=== PATIENT | male | born 1980 | race Caucasian/White ===

== ENCOUNTER 2019-10-06 12:18 | Outpatient (CLI) | payer MEDICAID, SELFPAY ==
--- NOTE | 2019-10-06 12:30 | XRR_ITS ---
PROCEDURE INFORMATION: Exam: XR Right Shoulder Exam date and time: 10/06/2019 12:41 PM Age: 39 years old Clinical indication: Pain; Shoulder; Right; Additional info: Pain in R shoulder TECHNIQUE: Imaging protocol: XR Right shoulder. Views: 2 or more views. COMPARISON: No relevant prior studies available. FINDINGS: Bones/joints: Degenerative change, involving the acromioclavicular joint. No acute bony injury or malalignment. Soft tissues: Unremarkable soft tissues. XR/XR shoulder RT min 2V* [id number] IMPRESSION: Degenerative change, involving the acromioclavicular joint.
== END 2019-10-06 12:19 | disposition home or self-care (01) ==
LOC: RAD 12:22
PROVIDERS: Family Provider Physician Assistant Medical; Visit Provider Anesthesiology Pain Medicine
DX: M25.511 Pain in right shoulder (principal)
CPT/HCPCS: 73030

== ENCOUNTER → 2020-03-28 11:19 | Outpatient (BNVA) | payer MEDICAID, SELFPAY | PROVIDERS: Family Provider Physician Assistant Medical; Visit Provider Specialist | DX: R20.2 Paresthesia of skin (principal); R20.0 Anesthesia of skin; G56.01 Carpal tunnel syndrome, right upper limb | CPT/HCPCS: 95886; 95910; G0463 ==

== ENCOUNTER → 2020-05-02 14:35 | Outpatient (BNVA) | payer MEDICAID, SELFPAY | PROVIDERS: Family Provider Physician Assistant Medical; Visit Provider Specialist | DX: G56.01 Carpal tunnel syndrome, right upper limb (principal) | CPT/HCPCS: 73110 ==

== ENCOUNTER → 2020-05-18 10:03 | Outpatient (BNVA) | payer MEDICAID, SELFPAY | PROVIDERS: Family Provider Physician Assistant Medical; PCP Family Medicine; Referring Provider Specialist; Visit Provider Anesthesiology Pain Medicine | DX: M50.90 Cervical disc disorder, unspecified, unspecified cervical region (principal); M79.641 Pain in right hand; M79.642 Pain in left hand | CPT/HCPCS: 99205 ==

== ENCOUNTER 2020-06-07 11:10 | Outpatient (CLI) | payer MEDICAID, SELFPAY ==
--- NOTE | 2020-06-07 11:45 | MR_ITS ---
WS: [id number] MRI CERVICAL SPINE NONCONTRAST TECHNIQUE: Sagittal T1, T2 and STIR imaging. Axial T2, gradient, and fiesta imaging. CLINICAL INFORMATION: M50.90 - Cervical disc disorder, unspecified, unspecified cervical region COMPARISON: None. FINDINGS: Straightening of the normal cervical lordosis. Cord signal is normal. Minimal disc bulging C3-C4 and C4-C5. C2-C3: Normal. C3-C4: Mild disc bulging with a small central disc protrusion. Slight contact of the cervical cord. M ild left and no significant right foraminal narrowing. Mild facet arthropathy. C4-C5: Small central disc protrusion. Slight contact of the cervical cord. Mild central canal stenosi s. Mild bilateral foraminal narrowing. Mild facet arthropathy. C5-C6: Minimal disc bulging. Mild bilateral foraminal narrowing. Mild facet arthropathy. C6-C7: Mild disc bulging with endplate ridging. Mild left and no significant right foraminal narrowin g. Mild facet arthropathy. C7-T1: Mild left and no significant right foraminal narrowing. Spinal canal is patent. Visualized brain stem structures: Normal. Prevertebral soft tissues: Normal. MR/MR cervical spin wo con* [id number] IMPRESSION: 1. Straightening of the normal cervical lordosis. Cord signal is normal. 2. Small central protrusion C3-C4 and C4-C5 with mild central canal stenosis a nd slight contact of the cervical cord. 3. Mild bony foraminal narrowing left C3-C4, bilateral C4-5, bilateral C5-C6.
== END 2020-06-07 11:11 | disposition home or self-care (01) ==
LOC: RADSHAW 11:12
PROVIDERS: PCP Family Medicine; Visit Provider Anesthesiology Pain Medicine
DX: M50.90 Cervical disc disorder, unspecified, unspecified cervical region (principal); M50.21 Other cervical disc displacement, high cervical region; M48.02 Spinal stenosis, cervical region
CPT/HCPCS: 72141

== ENCOUNTER → 2020-07-21 13:31 | Outpatient (BNVA) | payer MEDICAID, SELFPAY | PROVIDERS: PCP Family Medicine; Referring Provider Registered Nurse; Visit Provider Internal Medicine | DX: E11.40 Type 2 diabetes mellitus with diabetic neuropathy, unspecified (principal) | CPT/HCPCS: 99204 ==

== ENCOUNTER → 2020-07-29 09:31 | Outpatient (BNVA) | payer MEDICAID, SELFPAY | PROVIDERS: PCP Family Medicine; Visit Provider Anesthesiology Pain Medicine | DX: G89.29 Other chronic pain (principal); M50.90 Cervical disc disorder, unspecified, unspecified cervical region; M54.9 Dorsalgia, unspecified; M79.641 Pain in right hand; M79.642 Pain in left hand; F17.210 Nicotine dependence, cigarettes, uncomplicated | CPT/HCPCS: 99214 ==

== ENCOUNTER → 2020-10-13 09:35 | Outpatient (BNVA) | payer MEDICAID, SELFPAY | PROVIDERS: PCP Family Medicine; Visit Provider Psychiatry & Neurology Psychiatry | DX: F32.9 Major depressive disorder, single episode, unspecified (principal) | CPT/HCPCS: 90792 ==

== ENCOUNTER → 2020-12-20 09:58 | Outpatient (BNVA) | payer OTHER, MEDICAID, SELFPAY | PROVIDERS: PCP Family Medicine; Visit Provider Psychiatry & Neurology Psychiatry | DX: F32.9 Major depressive disorder, single episode, unspecified (principal) | CPT/HCPCS: 99214 ==

== ENCOUNTER 2020-12-20 11:31 | Outpatient (CLI) | payer MEDICAID, SELFPAY ==
[2020-12-20 12:42] LABS: Estmated Average Glucose 214; Hemoglobin A1C 9.1 % (4.0-6.0)
[2020-12-20 13:10] LABS: Alkaline Phosphatase 78 IU/L (40-130)
[2020-12-20 15:22] LABS: Anion Gap 18.2 (5-19); Blood Urea Nitrogen 9 mg/dL (6-20); Calcium 8.7 mg/dL (8.5-10.5); Carbon Dioxide 20 mmol/L (22-29); Chloride 91 mmol/L (98-107); Glomerular Filtration Rate 238.3 mL/min (90-130); Glucose 349 mg/dL (65-115); Osmolality Calculated 273 mOsm/kg (285-295); Potassium 4.2 mmol/L (3.5-5.1); Total Bilirubin 0.2 mg/dL (0.15-1.2)
[2020-12-20 15:23] LABS: Total Protein 5.8 g/dL (6.6-8.7)
[2020-12-20 15:24] LABS: Albumin Level 3.4 g/dL (3.5-5.2); Globulin 2.4 g/dL (1.3-4.6); Triglycerides 15894 mg/dL (0-150)
[2020-12-20 15:25] LABS: Cholesterol 1259 mg/dL (0-200)
[2020-12-20 15:27] LABS: Sodium 125 mmol/L (136-145)
[2020-12-20 16:33] LABS: Chol HDL Ratio 38.15 mg/dL (1.0-5.00); HDL Cholesterol 33 mg/dL (60-100)
[2020-12-20 18:15] LABS: Alanine Aminotransferase 5 U/L (0-41); Aspartate Amino Transferase 5 U/L (0-40)
== END 2020-12-20 11:32 | disposition home or self-care (01) ==
PROVIDERS: PCP Family Medicine; Visit Provider Internal Medicine
DX: E11.9 Type 2 diabetes mellitus without complications (principal)
CPT/HCPCS: 36415; 80053; 80061; 83036

== ENCOUNTER → 2020-12-21 09:56 | Outpatient (BNVA) | payer OTHER, SELFPAY | PROVIDERS: PCP Family Medicine; Visit Provider Social Worker | DX: F32.9 Major depressive disorder, single episode, unspecified (principal) | CPT/HCPCS: 90834 ==

== ENCOUNTER 2020-12-21 19:02 | Inpatient (IN) | payer MEDICAID, SELFPAY ==
[2020-12-21 19:11] VITALS: BP 140/105; PULSE 97; RESP 18; TEMP 36.4; O2SAT 90; BMI 35.5
--- NOTE | 2020-12-21 19:41 | W.ED.RECABL ---
HPI - Recheck/Abnormal Lab/Rx General: Chief Complaint: ER Hold Stated Complaint: ABNORMAL LABS Time Seen by Provider: 12/21/20 19:13 Source: patient Mode of arrival: ambulatory Limitations: no limitations History of Present Illness: HPI narrative: 40-year-old male who has a history of high cholesterol along with diabetes. Patient seen his manager marketing yesterday had blood drawn's and had triglycerides over 15,000. Patient was called and told to go to the ER. He was seen at [facility] that spoke to Dr. Hamilton in [facility] talk to ER physician here patient was accepted here for transfer. Patient is to be placed on an insulin drip. He had mildly elevated lipase his manager marketing concerned that his triglycerides would cause a pancreatitis. He has no complaints at this time no vomiting no diarrhea. Review of Systems Const: Denies: fever(s), chills, body aches or change in appetite Eyes: Denies: blurry vision or eye discomfort ENMT: Denies: throat pain or dental pain Card: Denies: chest pain Resp: Denies: dyspnea GI: Denies: abdominal pain, nausea, vomiting or diarrhea : Denies: dysuria Musc: Denies: neck pain or back pain Skin/Breast: Denies: rash Neuro: Denies: headache(s) Psych: Denies: depression Jun/Lymph: Denies: easy bruising All/Imm: Denies: urticaria PFSH ED PFSH: Medical History COPD (chronic obstructive pulmonary disease) Diabetes mellitus Diabetic neuropathy MDD (major depressive disorder) Sleep apnea Surgical History History of appendectomy History of tonsillectomy Family History Mother Psychiatric illness Diabetes Cancer Father Psychiatric illness Cancer Social History Smoking and tobacco status: current every day smoker cigarettes [ Other cigarette details: 1-1.5 PPD ] Second hand smoke exposure: Yes Alcohol intake: current Alcohol intake frequency: holidays/special occasions only Lives independently: Yes History of recent travel: No Physical Exam Const: COMMON NORMALS: no acute distress, patient oriented x3 and healthy appearing HENMT: COMMON NORMALS: normocephalic and atraumatic HEAD & SCALP: normocephalic and atraumatic Eye: COMMON NORMALS: Equal, round and reactive pupils present and EOMs intact bilaterally PUPIL: Yes Equal, round and reactive pupils present Neck/C-Spine: COMMON NORMALS: full ROM and supple Chest: COMMONS NORMALS: normal inspection of the chest and normal palpation of entire chest wall Resp: COMMON NORMALS: normal respiratory effort, No retractions, No use of accessory muscles and clear to auscultation bilaterally AUSCULTATION: clear to auscultation bilaterally Cardio: COMMON NORMALS: regular rate, regular rhythm and No murmurs present (Cardio) RATE: regular rate RHYTHM: regular rhythm GI: COMMON NORMALS: Normal to inspection, nondistended, normoactive bowel sounds present, Soft to palpation, non-tender and no masses PALPATION: Yes Soft to palpation Extremity: COMMON NORMALS: normal to inspection and full ROM Neuro: COMMON NORMALS: patient oriented x3, moves all extremities and no focal motor deficits Psych: COMMON NORMALS: mental status grossly normal, Normal thought process present and cooperative THOUGHT PROCESS: Normal thought process present Skin: COMMON NORMALS: no rashes or lesions noted and no wounds GENERAL SKIN EXAM: no rashes or lesions noted Course Vital Signs: Vital signs: Vital Signs Temperature 97.5 F L 12/21/20 19:11 Pulse Rate 84 12/22/20 02:16 Respiratory Rate 16 12/22/20 02:16 Blood Pressure 126/84 12/22/20 02:16 Pulse Oximetry 94 12/22/20 02:16 MDM - Recheck/Abnormal Lab/Rx MDM Narrative: Medical decision making narrative: Patient presents with extremely high triglycerides sent here by his manager marketing for insulin drip. Patient started on insulin drip in the ER and I spoke to the hospitalist patient is in ICU hold. Patient has been stable while here. Lab Data: Labs: Lab Results 12/21/20 12/21/20 12/21/20 Range/Units 20:06 20:52 20:52 WBC 16.8 H (4.0-10.0) 10^3/ uL RBC 4.31 (4.1-5.3) 10^6/u L Hgb 14.9 (11.7-16.6) g/dL Hct 38.8 L (42.0-52.0) % MCV 90.0 (80-94) fl MCH 34.6 H (28.0-34.0) pg MCHC 38.4 H (30.0-36.0) g/dL RDW 14.2 (12.1-15.1) % Plt Count 223 (130-400) 10^3/c mm MPV 11.8 H (7.4-10.4) fL Neut % (Auto) 64.0 % Lymph % (Auto) 26.8 % Cassia % (Auto) 5.7 % Eos % (Auto) 2.0 % Baso % (Auto) 0.5 % Neut # (Auto) 10.73 H (1.8-7.7) 10^3/u L Lymph # (Auto) 4.5 (0.8-4.8) 10^3/u L Cassia # (Auto) 1.0 H (0.2-0.9) 10^3/u L Eos # (Auto) 0.3 (0.0-0.8) 10^3/u L Baso # (Auto) 0.1 (0.0-0.1) 10^3/u L Nucleated RBC % (a uto) 0.2 % Nucleated RBCs # 0.0 /100WBC Sodium 126 L (136-145) mmol/L Potassium 3.9 (3.5-5.1) mmol/L Chloride 95 L (98-107) mmol/L Carbon Dioxide 20 L (22-29) mmol/L Anion Gap 14.9 (5-19) BUN 9 (6-20) mg/dL Creatinine 0.2 L (0.7-1.2) mg/dL GFR Calculation 530.2 H (90-130) mL/min Glucose 380 H (65-115) mg/dL POC Glucose 424 H (70-110) mg/dL Calculated Osmolal ity 276 L (285-295) mOsm/k g Calcium 8.6 (8.5-10.5) mg/dL Total Bilirubin 0.2 (0.15-1.2) mg/dL AST 5 (0-40) U/L ALT < 5 (0-41) U/L Alkaline Phosphata se 90 (40-130) IU/L Total Protein 5.4 L (6.6-8.7) g/dL Albumin 3.1 L (3.5-5.2) g/dL Globulin 2.3 (1.3-4.6) g/dL Triglycerides 96774 H (0-150) mg/dL Lipase 137 H (13-60) U/L Discharge Plan Discharge Patient Disposition: Admitted As Inpatient Admit Provider: Jenni Hurst Clinical Impression: Elevated triglycerides with high cholesterol Condition: Stable Coding Level of Care Code ED Family Intervention Specialist for Chg Fwd Exam Comprehensive
[2020-12-21] MEDS: sodium chloride 0.9% 1,000 ML 999 ML IV (19:58)
[2020-12-21 19:59] VITALS: RESP 16
[2020-12-21] MEDS: ondansetron 2 mg/ML SDV 2 mL 4 MG IVP (19:59)
[2020-12-21] MEDS: morphine 4 mg/mL SDV 1 mL IVP (19:59)
[2020-12-21 20:14] LABS: Glucose Point of Care 424 mg/dL (70-110)
[2020-12-21] MEDS: insulin regular-human 250 UNIT in sodium chloride 0.9% 250 ML 7 UNIT IV (20:48)
[2020-12-21 21:58] LABS: Alkaline Phosphatase 90 IU/L (40-130); Blood Urea Nitrogen 9 mg/dL (6-20); Calcium 8.6 mg/dL (8.5-10.5); Carbon Dioxide 20 mmol/L (22-29); Chloride 95 mmol/L (98-107); Glucose 380 mg/dL (65-115); Lipase 137 U/L (13-60); Osmolality Calculated 276 mOsm/kg (285-295); Sodium 126 mmol/L (136-145); Total Bilirubin 0.2 mg/dL (0.15-1.2); Total Protein 5.4 g/dL (6.6-8.7)
[2020-12-21 21:59] VITALS: BP 120/94; PULSE 86; RESP 16; O2SAT 92
[2020-12-21 22:01] LABS: Glucose Point of Care 321 mg/dL (70-110)
[2020-12-21 22:01] LABS: Basophils # 0.1 10^3/uL (0.0-0.1); Basophils % 0.5 %; Eosinophils # 0.3 10^3/uL (0.0-0.8); Hematocrit 38.8 % (42.0-52.0); Hemoglobin 14.9 g/dL (11.7-16.6); Lymphocytes # 4.5 10^3/uL (0.8-4.8); Lymphocytes % 26.8 %; Mean Corpuscular HGB Conc 38.4 g/dL (30.0-36.0); Mean Corpuscular Hemoglobin 34.6 pg (28.0-34.0); Mean Platelet Volume 11.8 fL (7.4-10.4); Monocytes % 5.7 %; Neutrophils # 10.73 10^3/uL (1.8-7.7); Nucleated Red Blood Cells % 0.2 %; Platelet Count 223 10^3/cmm (130-400); Red Blood Count 4.31 10^6/uL (4.1-5.3); Red Cell Distribution Width 14.2 % (12.1-15.1); White Blood Count 16.8 10^3/uL (4.0-10.0)
[2020-12-21 22:10] LABS: Alanine Aminotransferase < 5 U/L (0-41); Aspartate Amino Transferase 5 U/L (0-40); Glomerular Filtration Rate 530.2 mL/min (90-130)
[2020-12-21 22:14] LABS: Albumin Level 3.1 g/dL (3.5-5.2); Globulin 2.3 g/dL (1.3-4.6)
[2020-12-21 22:15] LABS: Anion Gap 14.9 (5-19); Potassium 3.9 mmol/L (3.5-5.1)
--- NOTE | 2020-12-21 22:18 | XRR_ITS ---
PROCEDURE INFORMATION: Exam: XR Chest Exam date and time: 12/21/2020 10:18 PM Age: 40 years old Clinical indication: Cough and shortness of breath; Additional info: SOB TECHNIQUE: Imaging protocol: XR of the chest. Views: 1 view. COMPARISON: CR Chest 1 [place] [id number] 07/26/2018 8:32 PM FINDINGS: Lungs: Unremarkable. No consolidation. Pleural spaces: Unremarkable. No pleural effusion. No pneumothorax. Heart/Mediastinum: Unremarkable. No cardiomegaly. Bones/joints: Unremarkable. XR/XR chest 1V portable [id number] IMPRESSION: No acute findings.
--- NOTE | 2020-12-21 22:18 | ECG_ITS ---
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
[2020-12-21 22:19] LABS: Slide Review Slide Review Perform
[2020-12-21 22:33] LABS: Triglycerides 16272 mg/dL (0-150)
--- NOTE | 2020-12-21 22:55 | P.HP_ITS ---
Providers/Chief Complaint Admitting Physician: Jenni Hurst MD Primary Care Provider: Dawson Farrell MD Chief Complaint: ABNORMAL LABS History of Present Illness Erick Hickey is a 40 year old male with a past medical history of diabetes mellitus, dyslipidemia, consistent insulin use over the last 3 months, follows with Dr. Hamilton, had labs done for routine follow-up yesterday which showed markedly elevated triglyceride levels at 15,000. Patient was directed to come into the ER for insulin infusion to bring levels down. Patient states having been diagnosed with hypertriglyceridemia in the past with levels of around 2000. States he was never on any medications for the same. He has had uncontrolled diabetes mellitus with A1c 14.8 earlier in June, now trending down to 9 with consistent insulin use. No current complaints of chest pain dyspnea or palpitations. No complaints of abdominal pain nausea vomiting diarrhea. Review of Systems General: Reports: 10 or more systems reviewed and unremarkable except in HPI and below Const: Denies: fever(s), chills or body aches Eyes: Denies: change in vision, blurry vision or photophobia ENMT: Reports: hoarseness; Denies: throat pain, enlarged tonsils, odynophagia or nasal congestion Card: Denies: chest pain, palpitations, irregular heart rhythm, edema, swelling of feet/ankles, lightheadedness, pre-syncope, dyspnea on exertion or orthopnea Resp: Denies: dyspnea, productive cough, non-productive cough, wheezing, stri bobbi, pain on inspiration, change in phlegm color, hemoptysis or chest congestion GI: Denies: abdominal pain, nausea, vomiting, hematemesis, coffee ground emesis, dysphagia, heartburn, diarrhea, constipation, GI cramping, change in stool character, hematochezia or melena : Denies: flank pain, dysuria, urinary frequency, urinary urgency, urinary hesitancy or hematuria Musc: Denies: neck pain, back pain, extremity pain, joint swelling, joint warmth or deformity Neuro: Denies: headache(s), numbness in extremities, weakness in extremities, sensory changes, difficulty walking, frequent falls, dizziness, vertigo, behavioral changes, Slurred speech present or seizure-like activity Psych: Denies: anxiety, depression, suicidal ideation or homicidal ideation Endo: Denies: polyuria, polydipsia, tired all the time, cold intolerance or hot flashes Jun/Lymph: Denies: easy bruising or easy bleeding Medications/Allergies Home Medications Medication Instructions Recorded Confirmed Last Taken Type compression gloves #1 ea 05/02/20 12/21/20 Unknown Rx insulin glargine 100 unit/mL 20 unit SUBCUT DAILY #18 ml 07/21/20 12/21/20 12/21/20 Rx subcutaneous solution gabapentin 600 mg tablet 600 mg PO .COMPLEX 07/29/20 12/21/20 12/21/20 History ibuprofen 800 mg tablet 800 mg PO TID PRN tab 07/29/20 12/21/20 12/21/20 History folic acid 400 mcg tablet 400 mg PO DAILY 10/13/20 12/21/20 12/21/20 History metformin 500 mg tablet 1,000 mg PO BID tab 10/13/20 12/21/20 12/21/20 History vitamin B complex 1 tab PO DAILY 10/13/20 12/21/20 12/21/20 History bupropion HCl 150 mg 24 hr tablet, 150 mg PO BID 30 Days #60 tab 12/20/2012/21/20 Rx extended release hydrocodone 5 mg-acetaminophen 325 1 tab PO Q4H PRN 12/20/20 12/21/20 12/21/20 History mg tablet pregabalin 150 mg capsule 150 mg PO TID cap 12/20/20 12/21/20 12/21/20 History amitriptyline 50 mg PO BEDTIME 12/21/20 12/21/20 12/20/20 History Allergies Allergy/AdvReac Type Severity Reaction Status Date / Time latex Allergy SWELLING Verified 12/20/20 10:02 PFSH Acute PFSH: Medical History COPD (chronic obstructive pulmonary disease) Diabetes mellitus Diabetic neuropathy MDD (major depressive disorder) Sleep apnea Surgical History History of appendectomy History of tonsillectomy Family History Mother Psychiatric illness Diabetes Cancer Father Psychiatric illness Cancer Social History Smoking and tobacco status: current every day smoker cigarettes [ Other ci luis fernando details: 1-1.5 PPD ] Second hand smoke exposure: Yes Alcohol intake: current Alcohol intake frequency: holidays/special occasions only Lives independently: Yes History of recent travel: No Vitals/I&O/Wt Last Vital Signs Temp 97.5 F L 12/21/20 19:11 Pulse 86 12/21/20 21:59 Resp 16 12/21/20 21:59 BP 120/94 12/21/20 21:59 Pulse Ox 92 12/21/20 21:59 Weight last 48 hrs Weight 99.79 kg Physical Exam Narrative: EXAM NARRATIVE: General: No acute distress, AO x3 HEENT: PERRLA, pupils bilaterally equal and reactive, pallors not present Chest: Normal vesicular breath sounds, no added sounds, equal good air entry bilaterally CVS: S1-S2 regular, no murmurs, no tachycardia, no gallops, no rubs Abdomen: Soft, nontender, no organomegaly, bowel sounds present Neuro: No focal motor deficits, no facial deformity, AO x3, power 5/5 in all limbs Data : 12/21/20 20:52 12/21/20 20:52 A&P Assessment and plan (1) Elevated triglycerides with high cholesterol: Grossly elevated triglyceride level of >837[address]. Started on insulin infusion in the ER at 7 units/h, continue same for now. Monitor fingersticks every hour. Concomitant administration of D5 normal saline with 20 KCl. Check CMP and triglyceride level every 12 hours. No current signs or symptoms of acute pancreatitis, however high risk of development for the same. We will reach out to patient's medical payment poster tomorrow to establish goal for discontinuation of insulin drip (likely levels ~1000) and transition to oral fibrates and statins. Status: Acute (2) Diabetes mellitus: Currently on insulin infusion, FS monitoring ongoing every hour No signs of HHS at this time. Status: Acute Attestations Medical Necessity Statement*: anticipate >2midnight admission for management of severe hypertriglyceridemia needing continuous insulin infusion Coding Level of Care Code Acute Overhead Crane Technician for Chg Fwd Diagnoses Elevated triglycerides with high cholesterol E78.2 Diabetes mellitus E11.9
[2020-12-21 23:07] LABS: Glucose Point of Care 313 mg/dL (70-110)
[2020-12-21 23:58] LABS: Glucose Point of Care 319 mg/dL (70-110)
[2020-12-22] VITALS (24 sets, daily range): BP systolic 104–127; BP diastolic 67–84; PULSE 75–91; RESP 14–27; TEMP 36.7; O2SAT 89–136
[2020-12-22 01:07] LABS: Glucose Point of Care 285 mg/dL (70-110)
[2020-12-22 02:07] LABS: Glucose Point of Care 165 mg/dL (70-110)
[2020-12-22] MEDS: dextrose 5%-ns + KCl 20 20 MEQ/1,000 ML BAG 75 MEQ IV ×2 (02:31→19:11)
[2020-12-22 03:18] LABS: Glucose Point of Care 255 mg/dL (70-110)
[2020-12-22 04:15] LABS: Glucose Point of Care 333 mg/dL (70-110)
[2020-12-22 05:15] LABS: Glucose Point of Care 211 mg/dL (70-110)
[2020-12-22 05:42] LABS: Alkaline Phosphatase 73 IU/L (40-130); Blood Urea Nitrogen 11 mg/dL (6-20); Carbon Dioxide 22 mmol/L (22-29); Chloride 100 mmol/L (98-107); Glucose 218 mg/dL (65-115); Osmolality Calculated 278 mOsm/kg (285-295); Sodium 131 mmol/L (136-145); Total Bilirubin 0.2 mg/dL (0.15-1.2); Total Protein 5.5 g/dL (6.6-8.7)
[2020-12-22 05:53] LABS: Alanine Aminotransferase < 5 U/L (0-41); Aspartate Amino Transferase 5 U/L (0-40)
[2020-12-22 06:03] LABS: Anion Gap 12.8 (5-19); Glomerular Filtration Rate 332.1 mL/min (90-130); Potassium 3.8 mmol/L (3.5-5.1)
[2020-12-22 06:04] LABS: Albumin Level 2.9 g/dL (3.5-5.2); Globulin 2.6 g/dL (1.3-4.6); Triglycerides 15097 mg/dL (0-150)
[2020-12-22 06:08] LABS: Glucose Point of Care 193 mg/dL (70-110)
[2020-12-22 07:12] LABS: Glucose Point of Care 193 mg/dL (70-110)
[2020-12-22 09:17] LABS: Glucose Point of Care 202 mg/dL (70-110)
[2020-12-22] MEDS: morphine 4 mg/mL SDV 1 mL 2 MG IVP ×3 (09:17→20:33)
[2020-12-22 11:35] LABS: Glucose Point of Care 211 mg/dL (70-110)
[2020-12-22] MEDS: acetaminophen 325 mg Tablet 650 MG PO (13:13)
--- NOTE | 2020-12-22 14:14 | PM.PN ---
Subjective Subjective: Interval history: Patient was seen and examined in the ER, he was getting insulin and D5 gtt. Triglyceride every 12h with Accu-Cheks every hour. will need ICU Patient was given permission to have low-fat diet Is a smoker, recently started using marijuana for his depression, no previous history of pancreatitis does not take fibrate or statins, patient stating that he has not skipped any insulin in last 1 month Vitals/I&O/Wt Last Vital Signs Temp 97.5 F L 12/21/20 19:11 Pulse 85 12/22/20 09:18 Resp 14 12/22/20 13:15 BP 122/73 12/22/20 09:18 Pulse Ox 136 H 12/22/20 13:15 12/21/20 12/22/20 12/22/20 22:59 06:59 14:59 Intake Total 141.25 / 141.25 0 / 0 Balance 141.25 / 141.25 0 / 0 Weight last 48 hrs Weight 99.79 kg Physical Exam Narrative: EXAM NARRATIVE: Patient was laying in left lateral position No active chest pain or shortness of breath no active signs of peritonitis distended abdomen morbid obesity Awake alert oriented x3 GCS 15 EOMI, PERRLA No audible stridor or wheezing Data : 12/21/20 20:52 12/22/20 04:49 A&P Assessment and plan (1) Elevated triglycerides with high cholesterol: Status: Acute (2) MDD (major depressive disorder): Status: Acute (3) Diabetic neuropathy: Status: Acute (4) Diabetes mellitus: Status: Acute (5) Cervical disc disease: Status: Acute (6) Right carpal tunnel syndrome: Status: Acute (7) Bilateral hand numbness: Status: Acute Additional A&P Information Hypertriglyceridemia with underlying type 2 diabetes Poor compliance, patient does not follow healthy diet plan Low-fat diet allowed Admit to ICU Insulin drip until triglyceride level less than 500 High lipase however patient does not have typical pancreatitis peritonitis, he is able to tolerate his diet no active nausea or vomiting We will keep checking Accu-Cheks every hour with D5 and insulin gtt. Triglyceride level check every 12 hours No signs of DKA or encephalopathy He does take Lantus 20 units at home which I would continue once triglyceride less than 500, takes Metformin 1000 mg twice daily A1c 14.8 DVT prophylaxis SCDs Pseudohyponatremia corrected sodium 135 He does not have active neurological deficit bilateral hand numbness seems secondary to diabetic neuropathy Attestations Medical Necessity Statement*: Need ICU for insulin drip Time Spent in Patient Care: less than 15 minutes Coding Level of Care Code Acute Folding Rules Printing Machine Operator for Chg Fwd Diagnoses Elevated triglycerides with high cholesterol E78.2 MDD (major depressive disorder) F32.9 Diabetic neuropathy E11.40 Diabetes mellitus E11.9 Cervical disc disease M50.90 Right carpal tunnel syndrome G56.01 Bilateral hand numbness R20.0
[2020-12-22 14:44] LABS: Glucose Point of Care 264 mg/dL (70-110)
[2020-12-22 17:14] LABS: Glucose Point of Care 286 mg/dL (70-110)
[2020-12-22 18:13] LABS: Glucose Point of Care 359 mg/dL (70-110)
--- NOTE | 2020-12-22 18:16 | PC.NURSE ---
Admit Note Patient admitted to ICU from ED via bed. Patient presents with Insulin drip running per orders and complaining of right hand and feet numbness. Orders reviewed & will continue to monitor. Patient and/or escrow representative oriented to environment, equipment, and informed of the following as found in the admission booklet: patient rights & responsibilities, visitor policy, hand and respiratory hygiene practice.
--- NOTE | 2020-12-22 18:19 | SUR.OPER ---
Patient has been complaining of right hand numbness and pain and numbness in both feet. Patient yells out in pain with touch of extremities.
[2020-12-22 19:10] LABS: Glucose Point of Care 334 mg/dL (70-110)
[2020-12-22 20:12] LABS: Albumin Level 3.1 g/dL (3.5-5.2); Alkaline Phosphatase 60 IU/L (40-130); Blood Urea Nitrogen 9 mg/dL (6-20); Calcium 7.7 mg/dL (8.5-10.5); Carbon Dioxide 21 mmol/L (22-29); Chloride 99 mmol/L (98-107); Globulin 2.3 g/dL (1.3-4.6); Glomerular Filtration Rate 238.3 mL/min (90-130); Glucose 316 mg/dL (65-115); Osmolality Calculated 281 mOsm/kg (285-295); Sodium 130 mmol/L (136-145); Total Bilirubin 0.2 mg/dL (0.15-1.2); Total Protein 5.4 g/dL (6.6-8.7)
[2020-12-22 20:17] LABS: Anion Gap 13.9 (5-19); Potassium 3.9 mmol/L (3.5-5.1)
[2020-12-22 20:23] LABS: Aspartate Amino Transferase 5 U/L (0-40)
[2020-12-22] MEDS: amitriptyline 25 mg Tablet 50 MG PO (20:33)
[2020-12-22] MEDS: gabapentin 400 mg Capsule 1200 MG PO (20:33)
[2020-12-22 20:39] LABS: Glucose Point of Care 276 mg/dL (70-110)
[2020-12-22 20:55] LABS: Alanine Aminotransferase < 5 U/L (0-41)
[2020-12-22 21:20] LABS: Glucose Point of Care 217 mg/dL (70-110)
[2020-12-22 21:54] LABS: Triglycerides 10912 mg/dL (0-150)
[2020-12-22 22:13] LABS: Glucose Point of Care 197 mg/dL (70-110)
[2020-12-22 23:10] LABS: Glucose Point of Care 186 mg/dL (70-110)
[2020-12-23] VITALS (24 sets, daily range): BP systolic 102–143; BP diastolic 64–98; PULSE 74–89; RESP 9–27; TEMP 36.7–36.9; O2SAT 89–96
[2020-12-23 00:18] LABS: Glucose Point of Care 178 mg/dL (70-110)
--- NOTE | 2020-12-23 00:45 | PC.NURSE ---
1899 -- Report received from Yomaira Brink RN. Patient resting in bed talking with and patient requesting neurontin and other home medications. Notified patient that home meds had not been restarted but would talk to doctor about getting them restarted. Patient reports numbness, pain, and weakness to bilat arms. Noted in Dr. Heath's progress note that he is aware of the numbness in patients arms. 1929 -- Contacted Dr. Heath and reviewed patients current home medications, medications restarted as per Dr. Heath. Insulin drip infusing and checking blood glucose levels hourly.
[2020-12-23 01:13] LABS: Glucose Point of Care 179 mg/dL (70-110)
[2020-12-23] MEDS: HYDROcodone-acetaminophen 5-325 mg Tablet 1 TAB PO ×5 (02:21→20:31)
[2020-12-23] MEDS: insulin regular-human 250 UNIT in sodium chloride 0.9% 250 ML 11.6 UNIT IV (02:26)
[2020-12-23 02:39] LABS: Glucose Point of Care 156 mg/dL (70-110)
[2020-12-23 03:12] LABS: Glucose Point of Care 130 mg/dL (70-110)
[2020-12-23 04:13] LABS: Glucose Point of Care 130 mg/dL (70-110)
[2020-12-23 05:12] LABS: Glucose Point of Care 122 mg/dL (70-110)
[2020-12-23 06:06] LABS: Glucose Point of Care 125 mg/dL (70-110)
[2020-12-23] MEDS: pantoprazole DR 40 mg Tablet PO (07:41)
[2020-12-23] MEDS: gabapentin 400 mg Capsule 1200 MG PO ×2 (07:42→17:20)
[2020-12-23] MEDS: buPROPion XL (24 HR) 150 mg Tablet PO (07:42)
[2020-12-23 07:48] LABS: Glucose Point of Care 110 mg/dL (70-110)
[2020-12-23 08:14] LABS: Basophils # 0.1 10^3/uL (0.0-0.1); Basophils % 0.9 %; Eosinophils # 0.3 10^3/uL (0.0-0.8); Eosinophils % 3.3 %; Hematocrit 37.8 % (42.0-52.0); Hemoglobin 18.1 g/dL (11.7-16.6); Lymphocytes # 3.4 10^3/uL (0.8-4.8); Mean Corpuscular HGB Conc 47.9 g/dL (30.0-36.0); Mean Corpuscular Hemoglobin 43.6 pg (28.0-34.0); Mean Corpuscular Volume 91.1 fl (80-94); Mean Platelet Volume 11.3 fL (7.4-10.4); Monocytes # 0.7 10^3/uL (0.2-0.9); Monocytes % 7.1 %; Neutrophils # 5.09 10^3/uL (1.8-7.7); Neutrophils % 52.8 %; Nucleated Red Blood Cells % 0 %; Platelet Count 221 10^3/cmm (130-400); Red Blood Count 4.15 10^6/uL (4.1-5.3); Red Cell Distribution Width 14.5 % (12.1-15.1); White Blood Count 9.6 10^3/uL (4.0-10.0)
[2020-12-23 08:28] LABS: Slide Review Slide Review Perform
[2020-12-23] MEDS: dextrose 5%-ns + KCl 20 20 MEQ/1,000 ML BAG 75 MEQ IV ×2 (08:44→17:21)
[2020-12-23 09:32] LABS: Alanine Aminotransferase < 5 U/L (0-41); Albumin Level 2.9 g/dL (3.5-5.2); Alkaline Phosphatase 50 IU/L (40-130); Aspartate Amino Transferase 5 U/L (0-40); Blood Urea Nitrogen 7 mg/dL (6-20); Calcium 7.7 mg/dL (8.5-10.5); Carbon Dioxide 21 mmol/L (22-29); Chloride 102 mmol/L (98-107); Globulin 2.4 g/dL (1.3-4.6); Glomerular Filtration Rate 238.3 mL/min (90-130); Glucose 120 mg/dL (65-115); Lipase 30 U/L (13-60); Osmolality Calculated 275 mOsm/kg (285-295); Total Bilirubin 0.2 mg/dL (0.15-1.2); Total Protein 5.3 g/dL (6.6-8.7)
[2020-12-23 09:33] LABS: Anion Gap 13.7 (5-19); Potassium 3.7 mmol/L (3.5-5.1)
[2020-12-23 09:34] LABS: Sodium 133 mmol/L (136-145); Triglycerides 9069 mg/dL (0-150)
[2020-12-23 10:16] LABS: Glucose Point of Care 229 mg/dL (70-110)
[2020-12-23 11:23] LABS: Glucose Point of Care 143 mg/dL (70-110)
[2020-12-23 12:34] LABS: Glucose Point of Care 208 mg/dL (70-110)
[2020-12-23 12:38] LABS: Glucose Point of Care 160 mg/dL (70-110)
[2020-12-23 13:51] LABS: Glucose Point of Care 180 mg/dL (70-110)
--- NOTE | 2020-12-23 14:16 | PM.PN ---
Subjective Subjective: Interval history: Triglyceride improving, glucose within normal range Patient is able tolerate p.o. diet, no active nausea or vomiting Vitals/I&O/Wt Last Vital Signs Temp 98.4 F 12/23/20 04:00 Pulse 87 12/23/20 13:58 Resp 17 12/23/20 12:00 BP 104/68 12/23/20 12:00 Pulse Ox 91 12/23/20 12:00 12/22/20 12/23/20 12/23/20 22:59 06:59 14:59 Intake Total 1416.55 / 1416.55 277.217 / 9212.312 3232 / 1000 Output Total 1200 / 1200 Balance 1416.55 / 1416.55 277.217 / 1693.767 -200 / -200 Weight last 48 hrs Weight 104.961 kg Weight 99.79 kg Physical Exam Narrative: EXAM NARRATIVE: male No active dominant pain Able tolerate diet Hemodynamically stable S1, S2 Distended abdomen with obesity Lower extremity no edema EOMI, PERRLA no neurological deficit Data : 12/23/20 06:08 12/23/20 06:08 A&P Assessment and plan (1) Elevated triglycerides with high cholesterol: Status: Acute (2) MDD (major depressive disorder): Status: Acute (3) Diabetic neuropathy: Status: Acute (4) Diabetes mellitus: Status: Acute (5) Cervical disc disease: Status: Acute (6) Bilateral hand numbness: Status: Acute Additional A&P Information Hypertriglyceridemia with type 2 diabetes Triglycerides slowly trending down triglyceride level check every 12 hours, turn off insulin drip once triglycerides are less than 500 Able to tolerate p.o. diet no active nausea vomiting Lipase trended down no active signs of peritonitis He will need ICU for insulin drip I do suspect carpal tunnel syndrome and cervical disc disease to be the cause of bilateral upper extremity numbness, chest x-ray did not show any tumor Pancoast tumor unlikely Full code Cardiac diet DVT prophylaxis Lovenox Attestations Medical Necessity Statement*: Need ICU for insulin drip Time Spent in Patient Care: less than 15 minutes Coding Level of Care Code Acute Equipment Monitor Phototypesetting for Chg Fwd Diagnoses Elevated triglycerides with high cholesterol E78.2 MDD (major depressive disorder) F32.9 Diabetic neuropathy E11.40 Diabetes mellitus E11.9 Cervical disc disease M50.90 Bilateral hand numbness R20.0
[2020-12-23] MEDS: gabapentin 300 mg Capsule 600 MG PO (15:51)
[2020-12-23 16:22] LABS: Glucose Point of Care 165 mg/dL (70-110)
[2020-12-23 17:28] LABS: Glucose Point of Care 127 mg/dL (70-110)
[2020-12-23 18:12] LABS: Total Bilirubin 0.2 mg/dL (0.15-1.2)
[2020-12-23 18:14] LABS: Glucose Point of Care 101 mg/dL (70-110)
--- NOTE | 2020-12-23 18:15 | PC.NURSE ---
Patient has been complaining of right arm numbness and pain in bilateral lower legs. PRN pain medication given when available. Patient was able to ambulate multiple laps around unit.
--- NOTE | 2020-12-23 18:27 | PC.RESP ---
Smoking Cessation and Pulmonary Rehab information sent to patient.
[2020-12-23 18:41] LABS: Blood Urea Nitrogen 7 mg/dL (6-20); Calcium 7.8 mg/dL (8.5-10.5); Carbon Dioxide 19 mmol/L (22-29); Globulin 2.3 g/dL (1.3-4.6); Glomerular Filtration Rate 332.1 mL/min (90-130); Glucose 106 mg/dL (65-115); Osmolality Calculated 270 mOsm/kg (285-295)
[2020-12-23 19:20] LABS: Alkaline Phosphatase 53 IU/L (40-130); Chloride 101 mmol/L (98-107); Sodium 131 mmol/L (136-145); Total Protein 5.3 g/dL (6.6-8.7)
[2020-12-23 19:21] LABS: Anion Gap 15.1 (5-19); Potassium 4.1 mmol/L (3.5-5.1)
[2020-12-23 19:29] LABS: Glucose Point of Care 137 mg/dL (70-110)
[2020-12-23] MEDS: amitriptyline 25 mg Tablet 50 MG PO (20:14)
[2020-12-23 20:26] LABS: Glucose Point of Care 159 mg/dL (70-110)
[2020-12-23 20:43] LABS: Triglycerides 4394 mg/dL (0-150)
[2020-12-23] MEDS: insulin regular-human 250 UNIT in sodium chloride 0.9% 250 ML 11.3 UNIT IV (22:05)
[2020-12-23 23:26] LABS: Glucose Point of Care 123 mg/dL (70-110)
[2020-12-23 23:26] LABS: Glucose Point of Care 107 mg/dL (70-110)
[2020-12-23 23:26] LABS: Glucose Point of Care 125 mg/dL (70-110)
[2020-12-24] VITALS (25 sets, daily range): BP systolic 115–152; BP diastolic 75–113; PULSE 69–102; RESP 1–28; TEMP 36.7–36.9; O2SAT 97–98
[2020-12-24 00:21] LABS: Glucose Point of Care 125 mg/dL (70-110)
[2020-12-24 01:11] LABS: Glucose Point of Care 126 mg/dL (70-110)
[2020-12-24] MEDS: HYDROcodone-acetaminophen 5-325 mg Tablet 1 TAB PO ×5 (01:11→19:49)
[2020-12-24 03:23] LABS: Carbon Dioxide 20 mmol/L (22-29); Chloride 97 mmol/L (98-107); Sodium 128 mmol/L (136-145)
[2020-12-24 03:29] LABS: Blood Urea Nitrogen 7 mg/dL (6-20)
[2020-12-24 04:34] LABS: Glomerular Filtration Rate 530.2 mL/min (90-130); Glucose 100 mg/dL (65-115)
[2020-12-24 04:35] LABS: Anion Gap 14.9 (5-19); Osmolality Calculated 264 mOsm/kg (285-295); Potassium 3.9 mmol/L (3.5-5.1)
[2020-12-24 04:40] LABS: Glucose Point of Care 102 mg/dL (70-110)
[2020-12-24 04:40] LABS: Glucose Point of Care 100 mg/dL (70-110)
[2020-12-24 04:40] LABS: Glucose Point of Care 99 mg/dL (70-110)
[2020-12-24 05:24] LABS: Glucose Point of Care 105 mg/dL (70-110)
[2020-12-24] MEDS: dextrose 5%-ns + KCl 20 20 MEQ/1,000 ML BAG 75 MEQ IV ×2 (06:37→16:41)
[2020-12-24 06:48] LABS: Glucose Point of Care 113 mg/dL (70-110)
[2020-12-24 07:57] LABS: Glucose Point of Care 94 mg/dL (70-110)
[2020-12-24 08:01] LABS: Triglycerides 7029 mg/dL (0-150)
[2020-12-24] MEDS: buPROPion XL (24 HR) 150 mg Tablet PO (08:42)
[2020-12-24] MEDS: gabapentin 400 mg Capsule 1200 MG PO ×2 (08:43→16:42)
[2020-12-24] MEDS: pantoprazole DR 40 mg Tablet PO (08:44)
[2020-12-24 09:41] LABS: Glucose Point of Care 198 mg/dL (70-110)
[2020-12-24 10:32] LABS: Glucose Point of Care 204 mg/dL (70-110)
[2020-12-24 11:17] LABS: Glucose Point of Care 196 mg/dL (70-110)
[2020-12-24 12:29] LABS: Glucose Point of Care 104 mg/dL (70-110)
--- NOTE | 2020-12-24 13:04 | PC.SOCIAL ---
IMM update IMM updated with patient. Verbalized an understanding. Provided copy of Pg 2. Initialled, dated, timed, and placed in chart.
[2020-12-24 13:40] LABS: Glucose Point of Care 141 mg/dL (70-110)
--- NOTE | 2020-12-24 13:55 | P.PN_ITS ---
Subjective Subjective: Interval history: Patient was being underdosed for his insulin, I did talk with the nurse to give 0.25 units of insulin per cake per hour however considering his low blood sugar will do 0.1 units of insulin per cake's per hour for now check his blood sugar every hour and titrate it up to 20 if sugar is within normal range Patient was very frustrated because triglycerides are taking time to normalize No active nausea, vomiting, no fever Vitals/I&O/Wt Last Vital Signs Temp 98.4 F 12/24/20 09:00 Pulse 73 12/24/20 12:00 Resp 26 H 12/24/20 12:00 BP 129/94 12/24/20 09:00 Pulse Ox 97 12/24/20 04:00 12/23/20 12/24/20 12/24/20 22:59 06:59 14:59 Intake Total 1382.134 / 2490.054 2200.36 / 4690.414 Output Total 800 / 2000 Balance 582.134 / 071.194 2071.36 / 2690.414 Weight last 48 hrs Weight 106.957 kg Weight 104.961 kg Physical Exam Narrative: EXAM NARRATIVE: Patient was sitting comfortably in his room no active nausea vomiting Appears anxious S1, S2 Distended abdomen, with obesity No neurological deficit EOMI, PERRLA No audible stridor or wheezing Data : 12/23/20 06:08 12/24/20 02:40 A&P Assessment and plan (1) Elevated triglycerides with high cholesterol: Status: Acute (2) MDD (major depressive disorder): Status: Acute (3) Diabetic neuropathy: Status: Acute (4) Diabetes mellitus: Status: Acute (5) Cervical disc disease: Status: Acute (6) Right carpal tunnel syndrome: Status: Acute (7) Bilateral hand numbness: Status: Acute Additional A&P Information Titrate insulin according to his weight Likely due to underdosing of insulin his triglycerides went up, titrating his insulin up today with monitoring of blood sugar every hour, increase D5 half- normal saline to 100 mL/h, goal to achieve insulin 15 to 20 units Check triglyceride level every 12 hours Continue low-fat diet Patient and ICU nurse updated No signs of pancreatitis Hyponatremia secondary to hyper triglyceridemia We will replenish potassium I am suspecting it will become lower with continuous use of insulin Attestations Medical Necessity Statement*: Continue insulin Time Spent in Patient Care: 16 - 35 minutes Coding Level of Care Code Acute Delivery And Mail Sorter for Chg Fwd Diagnoses Elevated triglycerides with high cholesterol E78.2 MDD (major depressive disorder) F32.9 Diabetic neuropathy E11.40 Diabetes mellitus E11.9 Cervical disc disease M50.90 Right carpal tunnel syndrome G56.01 Bilateral hand numbness R20.0
[2020-12-24] MEDS: potassium chloride ER 20 mEq Tablet 40 MEQ PO (14:47)
[2020-12-24] MEDS: lidocaine 1% 5 ML in potassium chloride premix 100 ML 50 ML IV (14:47)
[2020-12-24] MEDS: pregabalin 150 mg Capsule PO ×2 (14:55→19:49)
[2020-12-24 14:58] LABS: Glucose Point of Care 146 mg/dL (70-110)
[2020-12-24 15:46] LABS: Glucose Point of Care 100 mg/dL (70-110)
[2020-12-24] MEDS: gabapentin 300 mg Capsule 600 MG PO (16:05)
[2020-12-24 16:51] LABS: Glucose Point of Care 78 mg/dL (70-110)
[2020-12-24 17:52] LABS: Glucose Point of Care 30 mg/dL (70-110)
[2020-12-24 17:52] LABS: Glucose Point of Care 68 mg/dL (70-110)
--- NOTE | 2020-12-24 18:20 | PC.NURSE ---
Shift Note Frequent safety and comfort rounds continue. Orders and/or nursing care completed as indicated. Patient monitored for response to intervention and treatment(s). Education provided includes diet compliance and triglyceride levels. Patient understood education. Insulin drip still running at set rate.
[2020-12-24 18:36] LABS: Glucose Point of Care 131 mg/dL (70-110)
[2020-12-24 19:45] LABS: Glucose Point of Care 152 mg/dL (70-110)
[2020-12-24] MEDS: amitriptyline 25 mg Tablet 50 MG PO (19:49)
[2020-12-24 20:40] LABS: Glucose Point of Care 145 mg/dL (70-110)
[2020-12-24 21:40] LABS: Glucose Point of Care 73 mg/dL (70-110)
--- NOTE | 2020-12-24 22:31 | PC.NURSE ---
patient educated on lovenox administration for DVT prophylaxis while in the hospital. patient stated that he has never had any issues with his blood clotting and he is not considered sedentary and does not feel that he needs any blood thinner at this time. Education reinforced that it is possible to develop a DVT while in the hospital due to less activity than normal. patient still refuses lovenox administration at this time
[2020-12-24] MEDS: insulin regular-human 250 UNIT in sodium chloride 0.9% 250 ML 15 UNIT IV (22:33)
[2020-12-24 22:42] LABS: Glucose Point of Care 96 mg/dL (70-110)
[2020-12-24 23:18] LABS: Triglycerides 5664 mg/dL (0-150)
[2020-12-24 23:30] LABS: Glucose Point of Care 54 mg/dL (70-110)
[2020-12-25] VITALS (17 sets, daily range): BP systolic 105–144; BP diastolic 65–96; PULSE 70–91; RESP 11–22; TEMP 36.7–36.9; O2SAT 92–98
[2020-12-25 00:40] LABS: Glucose Point of Care 106 mg/dL (70-110)
[2020-12-25] MEDS: HYDROcodone-acetaminophen 5-325 mg Tablet 1 TAB PO ×6 (00:47→21:55)
[2020-12-25 01:47] LABS: Glucose Point of Care 67 mg/dL (70-110)
[2020-12-25 02:37] LABS: Glucose Point of Care 71 mg/dL (70-110)
[2020-12-25 02:57] LABS: Triglycerides 5743 mg/dL (0-150)
[2020-12-25 03:36] LABS: Blood Urea Nitrogen 6 mg/dL (6-20); Calcium 8.5 mg/dL (8.5-10.5); Glomerular Filtration Rate 238.3 mL/min (90-130); Glucose 78 mg/dL (65-115); Osmolality Calculated 278 mOsm/kg (285-295); Sodium 136 mmol/L (136-145)
[2020-12-25 03:37] LABS: Anion Gap 12.3 (5-19); Carbon Dioxide 23 mmol/L (22-29); Chloride 105 mmol/L (98-107); Potassium 4.3 mmol/L (3.5-5.1)
[2020-12-25 04:04] LABS: Glucose Point of Care 56 mg/dL (70-110)
[2020-12-25 04:04] LABS: Glucose Point of Care 49 mg/dL (70-110)
[2020-12-25] MEDS: dextrose 50% syringe 50 mL 25 ML IVP (04:30)
[2020-12-25 04:31] LABS: Glucose Point of Care 57 mg/dL (70-110)
[2020-12-25] MEDS: dextrose 5%-ns + KCl 20 20 MEQ/1,000 ML BAG 75 MEQ IV (05:21)
[2020-12-25 05:34] LABS: Glucose Point of Care 89 mg/dL (70-110)
--- NOTE | 2020-12-25 06:08 | PC.NURSE ---
Shift Note Frequent safety and comfort rounds continue. Orders and nursing care completed as indicated. Patient monitored for response to intervention and treatments. Education provided including importance of checking blood sugars at a regular basis at home. informed patient of reason for frequent lab draws and blood sugar sticks to monitor treatment progress. Patient does verbalize understanding but is still hesitant at complying with treatment. Patients blood sugar did drop multiple times over the night. juice and snacks were given to patient and 25 mL d50 was given this morning. Will continue to monitor.
[2020-12-25 06:24] LABS: Glucose Point of Care 123 mg/dL (70-110)
[2020-12-25 08:10] LABS: Glucose Point of Care 71 mg/dL (70-110)
[2020-12-25] MEDS: gabapentin 400 mg Capsule 1200 MG PO ×2 (08:21→17:17)
[2020-12-25] MEDS: pantoprazole DR 40 mg Tablet PO (08:21)
[2020-12-25] MEDS: pregabalin 150 mg Capsule PO ×3 (08:21→20:21)
[2020-12-25] MEDS: potassium chloride ER 20 mEq Tablet 40 MEQ PO (08:21)
[2020-12-25] MEDS: buPROPion XL (24 HR) 150 mg Tablet PO (08:21)
[2020-12-25 09:57] LABS: Glucose Point of Care 171 mg/dL (70-110)
[2020-12-25 11:54] LABS: Glucose Point of Care 53 mg/dL (70-110)
[2020-12-25 13:43] LABS: Glucose Point of Care 216 mg/dL (70-110)
--- NOTE | 2020-12-25 14:47 | P.PN_ITS ---
Subjective Subjective: Interval history: TRiGlycerides 5000, insulin drip running at 15 D5 increased to 100 mL/h No active symptoms patient is very eager to go home He did ask me question regarding his skin rash which she developed a month ago It seemed like folliculitis His diet was changed to consistent carb with low-fat Vitals/I&O/Wt Last Vital Signs Temp 98.3 F 12/25/20 12:00 Pulse 75 12/25/20 08:00 Resp 18 12/25/20 09:00 BP 123/80 12/25/20 09:00 Pulse Ox 98 12/25/20 09:00 12/24/20 12/25/20 12/25/20 22:59 06:59 14:59 Intake Total 556.978 / 616.198 950 / 1566.198 231.25 / 231.25 Balance 556.978 / 616.198 950 / 1566.198 231.25 / 231.25 Weight last 48 hrs Weight 109.429 kg Weight 106.957 kg Physical Exam Narrative: EXAM NARRATIVE: Morbidly obese male no neurological deficit S1, S2 No acute respite distress saturating well on room air Cholesteatoma noted around eyes Skin rash around cheeks and eyebrows Folliculitis of arms and legs noted no active signs of cellulitis Macular rash Distended none tender abdomen Lower extremity no edema multiple skin tattoos Data : 12/23/20 06:08 12/25/20 02:23 A&P Assessment and plan (1) Elevated triglycerides with high cholesterol: Status: Acute (2) MDD (major depressive disorder): Status: Acute (3) Diabetic neuropathy: Status: Acute (4) Right carpal tunnel syndrome: Status: Acute (5) Bilateral hand numbness: Status: Acute Additional A&P Information Hypertriglyceridemia secondary to type 2 diabetes At home he takes insulin 20 units I do believe he will need at least 25 to 30 units of Lantus on discharge Continue insulin drip at 15 units I would not increase units for now because of his hypoglycemic events overnight, increase D5 normal saline fluid rate to 100 mL/h I told patient that he will not be able to go home unless triglycerides are less than 500 change diet to low-fat consistent carb today instead of just low-fat We will add atorvastatin today Patient is motivated to lose weight and take care of his diabetes For his rash I would not add any antibiotics, I would like to try topical steroids on his right arm rash Carpal tunnel syndrome no acute decompensation Low-fat consistent carb diet Full code DVT prophylaxis Lovenox Attestations Medical Necessity Statement*: Anticipating discharge once triglyceride less than 500 Time Spent in Patient Care: 16 - 35 minutes Coding Level of Care Code Acute Core Assembly Supervisor for Chg Fwd Diagnoses Elevated triglycerides with high cholesterol E78.2 MDD (major depressive disorder) F32.9 Diabetic neuropathy E11.40 Right carpal tunnel syndrome G56.01 Bilateral hand numbness R20.0
[2020-12-25 14:58] LABS: Glucose Point of Care 177 mg/dL (70-110)
[2020-12-25] MEDS: acetaminophen 325 mg Tablet 650 MG PO (15:47)
[2020-12-25] MEDS: gabapentin 300 mg Capsule 600 MG PO (15:47)
[2020-12-25] MEDS: dextrose 5%-ns + KCl 20 20 MEQ/1,000 ML BAG 100 MEQ IV ×2 (15:51→23:54)
[2020-12-25 16:36] LABS: Glucose Point of Care 115 mg/dL (70-110)
[2020-12-25 18:15] LABS: Glucose Point of Care 116 mg/dL (70-110)
[2020-12-25] MEDS: insulin regular-human 250 UNIT in sodium chloride 0.9% 250 ML 15 UNIT IV (18:18)
[2020-12-25 18:47] LABS: Triglycerides 5236 mg/dL (0-150)
[2020-12-25 19:49] LABS: Glucose Point of Care 153 mg/dL (70-110)
[2020-12-25] MEDS: amitriptyline 25 mg Tablet 50 MG PO (20:21)
[2020-12-25] MEDS: atorvastatin 40 mg Tablet PO (20:21)
[2020-12-25 20:40] LABS: Glucose Point of Care 49 mg/dL (70-110)
[2020-12-25 21:48] LABS: Glucose Point of Care 135 mg/dL (70-110)
[2020-12-25 23:20] LABS: Glucose Point of Care 46 mg/dL (70-110)
[2020-12-25 23:47] LABS: Glucose Point of Care 36 mg/dL (70-110)
[2020-12-25 23:47] LABS: Glucose Point of Care 159 mg/dL (70-110)
[2020-12-25 23:47] LABS: Glucose Point of Care 29 mg/dL (70-110)
[2020-12-26] VITALS (17 sets, daily range): BP systolic 104–159; BP diastolic 59–95; PULSE 70–87; RESP 11–24; TEMP 35.9–37.1; O2SAT 77–97; BMI 38.1
[2020-12-26 01:02] LABS: Glucose Point of Care 149 mg/dL (70-110)
[2020-12-26 02:54] LABS: Glucose Point of Care 99 mg/dL (70-110)
[2020-12-26 04:03] LABS: Triglycerides 4276 mg/dL (0-150)
[2020-12-26 05:04] LABS: Glucose Point of Care 69 mg/dL (70-110)
--- NOTE | 2020-12-26 07:00 | PC.NURSE ---
Shift Note Frequent safety and comfort rounds continue. Orders and/or nursing care completed as indicated. Patient monitored for response to intervention and treatment(s). Education provided includes insulin drip. Patient verbalized understanding of teaching. Left forearm has insulin drip insulin at 15 mls/hr along with D5 NS KCL 20 mEq at 100 mls/hr. Right forearm IV is saline locked at this time. Patient on room air and alert and oriented x4. Patient reported pain in the hands and feet overnight, pain medication given. Please see MAR for more detail. Will continue to monitor.
[2020-12-26 07:34] LABS: Glucose Point of Care 59 mg/dL (70-110)
[2020-12-26 07:34] LABS: Glucose Point of Care 165 mg/dL (70-110)
--- NOTE | 2020-12-26 08:34 | PC.CHAP ---
Pastoral Care Encounter/Spiritual Assessment Type of Contact [] Declined science interpreter visit [] Patient/Family/Request visit [] Outpatient visit [] Follow-up visit [] Physician referral [] Code/Alert [x] Routine visit [] Staff referral [] Actively dying [] Patient sleeping [] Family support [] [] Out of room [] Palliative care [] [] Receiving care in room [] Pre-surgical visit [] Trauma [] Long length of stay [x] ICU visit [] Other: Relational/Emotional Strength [] Patient feels connected with others/family/visitors/staff [] Distress [] Loneliness/isolation [] Abandonment Spirituality of Patient [] Person of Taty [] Attends Episcopalian of their Taty [] Believes in Prayer [] Reads Bible or Yazidism materials [] There are Spiritual issues to be addressed Lawn Care Professional Interventions [x] Prayer [] Active listening [] Non-anxious presence [] Spiritual/emotional support [] Crisis/trauma care x [] Spiritual counseling [] Bereavement support [] Provided bereavement packet [] Provided Bible/devotional materials [] Provided toy/stuffed animal, coloring book to patient or family member [] Provided Communion [] Anointing/[place] [] Salvation [x] Completed spiritual assessment [] Other: Impact on Illness or Injury [] Angry [] Fearful [] Anxious [] Often cries [] Exhaustion [] Unable to work [] Unable to attend rastafarian [] Unable to walk/stand [] Unable to read [] Unable to drive [] Unable to eat/drink [] Unable to sleep [] Unable to be with family [] Patient intubated [] Other: Summary Time spent with patient
[2020-12-26 08:38] LABS: Glucose Point of Care 167 mg/dL (70-110)
[2020-12-26] MEDS: pantoprazole DR 40 mg Tablet PO (08:59)
[2020-12-26] MEDS: potassium chloride ER 20 mEq Tablet 40 MEQ PO (08:59)
[2020-12-26] MEDS: gabapentin 400 mg Capsule 1200 MG PO ×2 (09:00→20:05)
[2020-12-26] MEDS: pregabalin 150 mg Capsule PO ×3 (09:00→20:06)
[2020-12-26] MEDS: buPROPion XL (24 HR) 150 mg Tablet PO (09:01)
[2020-12-26] MEDS: HYDROcodone-acetaminophen 5-325 mg Tablet 1 TAB PO ×4 (09:07→23:39)
[2020-12-26] MEDS: dextrose 5%-ns + KCl 20 20 MEQ/1,000 ML BAG 100 MEQ IV (09:08)
[2020-12-26 09:41] LABS: Glucose Point of Care 172 mg/dL (70-110)
[2020-12-26 11:15] LABS: Glucose Point of Care 96 mg/dL (70-110)
[2020-12-26] MEDS: acetaminophen 325 mg Tablet 650 MG PO (11:18)
--- NOTE | 2020-12-26 11:30 | PC.NURSE ---
0800 rcd. alert, somewhat anxious, states he wants to go home.
--- NOTE | 2020-12-26 11:35 | PC.NURSE ---
0930. pt. informed he would not be allowed to walk out of room d/t covid. pt has n-95 mask he wears when out of room, threatened to leave. explained the risks of going out of room.
[2020-12-26 12:49] LABS: Glucose Point of Care 126 mg/dL (70-110)
--- NOTE | 2020-12-26 12:56 | PC.NURSE ---
ambulating around out of unit, using bathroom, going to gift shop. concerned how he could purchase a book from gift shop w/o any zarate. unable to use his card d/t book being less than 5.$
[2020-12-26] MEDS: gabapentin 300 mg Capsule 600 MG PO (13:30)
[2020-12-26] MEDS: insulin regular-human 250 UNIT in sodium chloride 0.9% 250 ML 18 UNIT IV (13:52)
--- NOTE | 2020-12-26 13:56 | PC.NURSE ---
resting quietly in room at this time. lyrica and gabapentin times changed to accomodate how he takes them at home. noon dose given now.
[2020-12-26 14:06] LABS: Glucose Point of Care 144 mg/dL (70-110)
--- NOTE | 2020-12-26 15:01 | PC.SOCIAL ---
IMM update IMM updated with patient. Verbalized an understanding. Provided copy of Pg 2. Initialled, dated, timed, and placed in chart.
[2020-12-26 15:20] LABS: Glucose Point of Care 125 mg/dL (70-110)
--- NOTE | 2020-12-26 15:22 | PC.NURSE ---
out of unit ambulating with n-95 mask on.
--- NOTE | 2020-12-26 15:59 | PC.NURSE ---
resting in room, visiting with son.
[2020-12-26 16:08] LABS: Glucose Point of Care 91 mg/dL (70-110)
--- NOTE | 2020-12-26 16:09 | PC.NURSE ---
dr. morris called d/t pt. stating they should have drawn blood at 3pm. pt. anxious for levels to be lower.
--- NOTE | 2020-12-26 16:59 | PC.NUTR ---
Nutrition follow up: Episodes of hypoglycemia noted. 100% of some meals, but others missing from EMR. Recommend to encourage consistent intake at meals to promote stable blood glucose control. Distended abdomen per MD notes--unclear as to possible cause. If related to constipation, recommend to encourage po intakes of fluids and high-fiber foods. Nurse unavailable at this time. Pt may benefit from outpatient nutrition education at later time. See full RD assessment for further details.
[2020-12-26 17:09] LABS: Glucose Point of Care 72 mg/dL (70-110)
[2020-12-26] MEDS: dextrose 5%-ns + KCl 20 20 MEQ/1,000 ML BAG 125 MEQ IV ×2 (17:46→23:40)
--- NOTE | 2020-12-26 17:49 | PC.NURSE ---
dr. morris in visited with pt. re: insulin resistance. son at bedside.
--- NOTE | 2020-12-26 17:52 | PC.NURSE ---
vital signs low today d/t pt. being up in room and taking everything off. outputs not documented d/t using bathroom outside unit.
[2020-12-26 18:09] LABS: Triglycerides 3850 mg/dL (0-150)
[2020-12-26 18:25] LABS: LDL Cholesterol Direct 42 mg/dL (0-100)
--- NOTE | 2020-12-26 18:32 | P.PN_ITS ---
Subjective Subjective: Interval history: Patient is very motivated to leave the hospital however his triglycerides today are 3800 Increase insulin drip from 15 units to 18 units We have tried to use 0.25 units/kg/h however because of low blood sugar we have not been able to achieve that, increase D5 normal saline 125 mL/h Patient is on consistent carb diet and low-fat He is very motivated to lose weight and willing to try Lantus, GLP-1 analog, Metformin and follow-up with Dr. Hamilton He had multiple questions regarding the etiology and relationship to Covid Insulin resistance mechanism of hypertriglyceridemia with type 1 diabetes was explained in front of his son Vitals/I&O/Wt Last Vital Signs Temp 98.5 F 12/26/20 15:01 Pulse 83 12/26/20 16:00 Resp 21 H 12/26/20 16:00 BP 143/93 12/26/20 16:00 Pulse Ox 95 12/26/20 15:01 12/26/20 12/26/20 12/26/20 06:59 14:59 22:59 Intake Total 1105 / 2690.417 2139.166 / 2139.166 1596.667 / 3735.833 Balance 1105 / 2690.417 2139.166 / 2139.166 1596.667 / 3735.833 Weight last 48 hrs Weight 107.133 kg Weight 109.429 kg Physical Exam Narrative: EXAM NARRATIVE: Eating at the bedside S1, S2 Morbid obesity Papular rash of back, right extremity, legs with folliculitis with no active cellulitis Seborrheic dermatitis of face Abdomen soft Lower extremity no edema EOMI: PERRLA No neurological deficits Cholesteatoma noted around eyes Positive carpal tunnel median nerve excitation nerve exam finding Data : 12/23/20 06:08 12/25/20 02:23 A&P Assessment and plan (1) Elevated triglycerides with high cholesterol: Status: Acute (2) Diabetes mellitus: Status: Acute (3) Diabetic neuropathy: Status: Acute (4) MDD (major depressive disorder): Status: Acute (5) Right carpal tunnel syndrome: Status: Acute (6) Cervical disc disease: Status: Acute (7) Bilateral hand numbness: Status: Acute Additional A&P Information Hypertriglyceridemia secondary to insulin resistance with underlying worsening type 2 diabetes Triglycerides trending down today 3800 Increase insulin units to 18 units, increase dextrose fluids 125 mill per hour Patient is eager to leave the hospital Willing to try Lantus more than 25 units, Metformin and GLP-1 analog and follow- up with Dr. Hamilton I have instructed him to check his blood sugar and keep it between 80-1 30 in fasting state and increase Lantus by 2 to 3 units every day if he is not able to achieve goal to increase insulin sensitivity he can use Metformin, GLP-1 analogs, he was motivated to lose weight as well No pancreatitis Lipase improved Triglyceride check every 12 hours, blood sugar check every hour Signs of depression positive He does get emotionally labile however compensated for now Bilateral hand numbness carpal tunnel syndrome No strokelike findings History of carpal tunnel To see general surgery for decompressive surgery Consistent carb low-fat diet Full code DVT prophylaxis Lovenox Patient is eager to leave stating once his triglycerides less than 2000 he will leave the hospital Attestations Medical Necessity Statement*: Continue ICU management Time Spent in Patient Care: Greater than 35 minutes Coding Level of Care Code Acute Transaction Manager for Chg Fwd Diagnoses Elevated triglycerides with high cholesterol E78.2 Diabetes mellitus E11.9 Diabetic neuropathy E11.40 MDD (major depressive disorder) F32.9 Right carpal tunnel syndrome G56.01 Cervical disc disease M50.90 Bilateral hand numbness R20.0
[2020-12-26 18:34] LABS: Glucose Point of Care 125 mg/dL (70-110)
[2020-12-26 19:29] LABS: Glucose Point of Care 117 mg/dL (70-110)
[2020-12-26] MEDS: amitriptyline 25 mg Tablet 50 MG PO (20:05)
[2020-12-26] MEDS: atorvastatin 40 mg Tablet PO (20:06)
--- NOTE | 2020-12-26 20:12 | PC.NURSE ---
POC BS 94, PT GIVEN JUICE AND SANDWICH AT THIS TIME
[2020-12-26 20:27] LABS: Glucose Point of Care 94 mg/dL (70-110)
--- NOTE | 2020-12-26 21:19 | PC.NURSE ---
POC BS 106, PT GIVEN JUICE AT THIS TIME
[2020-12-26 21:23] LABS: Glucose Point of Care 106 mg/dL (70-110)
--- NOTE | 2020-12-26 22:22 | PC.NURSE ---
POC BS 99, PT GIVEN ORANGE CHARLIBET AT THIS TIME
[2020-12-26 22:26] LABS: Glucose Point of Care 99 mg/dL (70-110)
--- NOTE | 2020-12-26 23:15 | PC.NURSE ---
POC BS 91, PT GIVEN JUICE AT THIS TIME
[2020-12-26 23:18] LABS: Glucose Point of Care 91 mg/dL (70-110)
[2020-12-27] VITALS (19 sets, daily range): BP systolic 122–158; BP diastolic 85–105; PULSE 74–83; RESP 13–20; TEMP 36.6–37; O2SAT 79–96
--- NOTE | 2020-12-27 00:21 | PC.NURSE ---
POC BS 117, PT GIVEN PEANUT BUTTER AND ICE WATER AT THIS TIME
[2020-12-27 00:25] LABS: Glucose Point of Care 117 mg/dL (70-110)
--- NOTE | 2020-12-27 01:36 | PC.NURSE ---
POC 92, PT GIVEN ORANGE JUICE AT THIS TIME
[2020-12-27 01:43] LABS: Glucose Point of Care 92 mg/dL (70-110)
--- NOTE | 2020-12-27 02:15 | PC.NURSE ---
POC BS 109, PT GIVEN ANDIE AT THIS TIME
[2020-12-27 02:20] LABS: Glucose Point of Care 109 mg/dL (70-110)
--- NOTE | 2020-12-27 03:21 | PC.NURSE ---
POC BS 79, PT GIVEN JUICE AT THIS TIME. PT A&OX 4, WARM AND DRY TO THE TOUCH, NO HYPOGLYCEMIC SYMPTOMS NOTED. WILL RECHECK IN 30 MINUTES
[2020-12-27 03:24] LABS: Glucose Point of Care 79 mg/dL (70-110)
--- NOTE | 2020-12-27 03:53 | PC.NURSE ---
POC BS 114, PT REFUSING ANY NUTRITIONAL SUPPLEMENTS/NOTHING GIVEN TO PT AT THIS TIME.
[2020-12-27 03:58] LABS: Glucose Point of Care 114 mg/dL (70-110)
--- NOTE | 2020-12-27 05:21 | PC.NURSE ---
POC BS 80, PT GIVEN FRUIT CUP AT THIS TIME.
[2020-12-27] MEDS: HYDROcodone-acetaminophen 5-325 mg Tablet 1 TAB PO ×4 (05:24→19:40)
[2020-12-27 05:25] LABS: Glucose Point of Care 80 mg/dL (70-110)
[2020-12-27] MEDS: insulin regular-human 250 UNIT in sodium chloride 0.9% 250 ML 18 UNIT IV (05:25)
--- NOTE | 2020-12-27 06:10 | PC.NURSE ---
POC BS 81, PT GIVEN ORANGE JUICE AT THIS TIME
[2020-12-27 06:23] LABS: Blood Urea Nitrogen 7 mg/dL (6-20); Calcium 8.1 mg/dL (8.5-10.5); Carbon Dioxide 22 mmol/L (22-29); Chloride 101 mmol/L (98-107); Glomerular Filtration Rate 332.1 mL/min (90-130); Glucose 76 mg/dL (65-115); Osmolality Calculated 275 mOsm/kg (285-295); Sodium 134 mmol/L (136-145)
[2020-12-27 06:24] LABS: Anion Gap 15.3 (5-19); Potassium 4.3 mmol/L (3.5-5.1)
[2020-12-27 06:30] LABS: Glucose Point of Care 81 mg/dL (70-110)
[2020-12-27 06:37] LABS: Triglycerides 3087 mg/dL (0-150)
--- NOTE | 2020-12-27 06:44 | PC.NURSE ---
Shift Note Frequent safety and comfort rounds continue. Orders and/or nursing care completed as indicated. Patient monitored for response to intervention and treatment(s). Education provided includes DIET, INSULIN GTT, ELEVATION OF RIGHT HAND, AND REST. Patient and/or admissions representative PT ASKED APPROPRIATE QUESTIONS AND VERBALIZED UNDERSTANDING OF TREATMENT AND LAB RESULTS. CARE TO BE TURNED OVER TO DAY SHIFT NURSE SHORTLY.
--- NOTE | 2020-12-27 06:50 | PC.NURSE ---
POC BS 69. PT A&OX4, SKIN WARM AND DRY, NO HYPOGLYCEMIC SYMPTOMS NOTED. 240 ML OF JUICE GIVEN AND ONE SPOON OF PEANUT BUTTER. WILL REASSESS IN 30MINS
[2020-12-27 06:55] LABS: Glucose Point of Care 69 mg/dL (70-110)
--- NOTE | 2020-12-27 07:00 | PC.NURSE ---
PT NOTED TO BE RESTING IN BED WHILE 7PM NURSE GAVE BEDSIDE REPORT. 7PM NURSE ALREADY OBTAINED 0700 BLOOD SUGAR AND GAVE PATIENT A SNACK. WILL RECHECK WITHIN THE HOUR.
--- NOTE | 2020-12-27 07:15 | PC.NURSE ---
In reviewing chart noted on physician progress note to have insulin drip to be infusing at 18units/hr. No actual orders noted. Upon entering room, noted insulin drip is infusing at 18units/hr as per progress note. Will continue to monitor
--- NOTE | 2020-12-27 07:17 | PC.NURSE ---
POC BS 93, PT GIVEN 120ML COFFEE WITH 2 PACKS OF SUGAR AND 2 CREAMER AT THIS TIME
[2020-12-27 07:20] LABS: Glucose Point of Care 93 mg/dL (70-110)
--- NOTE | 2020-12-27 07:30 | PC.NURSE ---
PT REFUSING CONTINUOUS MONITORING AND WILL ONLY ALLOW NURSE TO OBTAIN VITALS AND THEN REMOVE.
[2020-12-27 07:42] LABS: LDL Cholesterol Direct 46 mg/dL (0-100)
[2020-12-27] MEDS: buPROPion XL (24 HR) 150 mg Tablet PO (08:04)
[2020-12-27] MEDS: potassium chloride ER 20 mEq Tablet 40 MEQ PO (08:04)
[2020-12-27] MEDS: gabapentin 400 mg Capsule 1200 MG PO ×2 (08:04→19:41)
[2020-12-27] MEDS: dextrose 5%-ns + KCl 20 20 MEQ/1,000 ML BAG 125 MEQ IV ×2 (08:04→17:02)
[2020-12-27] MEDS: pregabalin 150 mg Capsule PO ×3 (08:04→19:41)
[2020-12-27] MEDS: pantoprazole DR 40 mg Tablet PO (08:04)
[2020-12-27] MEDS: acetaminophen 325 mg Tablet 650 MG PO ×2 (08:12→17:39)
--- NOTE | 2020-12-27 08:22 | PC.NURSE ---
BS - 125 AFTER PATIENT ATE BREAKFAST. WILL CONTINUE TO MONITOR.
[2020-12-27 08:27] LABS: Glucose Point of Care 125 mg/dL (70-110)
--- NOTE | 2020-12-27 08:38 | PC.CHAP ---
Pastoral Care Encounter/Spiritual Assessment Type of Contact [] Declined ordnance artificer helper visit [] Patient/Family/Request visit [] Outpatient visit [] Follow-up visit [] Physician referral [] Code/Alert [x] Routine visit [] Staff referral [] Actively dying [] Patient sleeping [] Family support [] [] Out of room [] Palliative care [] [] Receiving care in room [] Pre-surgical visit [] Trauma [] Long length of stay [x] ICU visit [] Other: Relational/Emotional Strength [] Patient feels connected with others/family/visitors/staff [] Distress [] Loneliness/isolation [] Abandonment Spirituality of Patient [] Person of Taty [] Attends Oriental Orthodox of their Taty [] Believes in Prayer [] Reads Bible or Spiritism materials [] There are Spiritual issues to be addressed Well Shooter Interventions [x] Prayer [] Active listening [] Non-anxious presence [] Spiritual/emotional support [] Crisis/trauma care [] Spiritual counseling [] Bereavement support [] Provided bereavement packet [] Provided Bible/devotional materials [] Provided toy/stuffed animal, coloring book to patient or family member [] Provided Communion [] Anointing/[place] [] Salvation [x] Completed spiritual assessment [] Other: Impact on Illness or Injury [] Angry [] Fearful [] Anxious [] Often cries [] Exhaustion [] Unable to work [] Unable to attend episcopalian [] Unable to walk/stand [] Unable to read [] Unable to drive [] Unable to eat/drink [] Unable to sleep [] Unable to be with family [] Patient intubated [] Other: Summary Time spent with patient
--- NOTE | 2020-12-27 09:27 | PC.NURSE ---
BS - 116 - PT GIVEN APPLE JUICE. WILL CONTINUE TO MONITOR. PT DENIES ANY SYMPTOMS OTHER THAN PAIN IN HIS RIGHT HAND. WILL HAVE PHYSICIAN EVALUATE WHEN HE ROUNDS.
[2020-12-27 09:34] LABS: Glucose Point of Care 142 mg/dL (70-110)
[2020-12-27 10:21] LABS: Glucose Point of Care 116 mg/dL (70-110)
--- NOTE | 2020-12-27 10:41 | PC.NURSE ---
PT HAS BEEN RUNNING AT 18GTT SINCE YESTERDAY.
--- NOTE | 2020-12-27 11:03 | PC.NURSE ---
BS 110. PT HAS A CUP OF FRUIT AT BEDSIDE THAT HE WOULD LIKE TO EAT. WILL CONTINUE TO MONITOR.
[2020-12-27 11:06] LABS: Glucose Point of Care 110 mg/dL (70-110)
--- NOTE | 2020-12-27 12:13 | PC.NURSE ---
BS - 74. PT DENIES FEELING SYMPTOMATIC. REPORTS THAT HIS RIGHT HAND AND LOWER BACK IS HURTING. PT'S LUNCH TRAY IS HERE, HE IS GOING TO EAT AND RN WILL RECHECK SUGAR WHEN HE IS FINISHED.
[2020-12-27] MEDS: gabapentin 300 mg Capsule 600 MG PO (12:14)
[2020-12-27 12:31] LABS: Glucose Point of Care 74 mg/dL (70-110)
--- NOTE | 2020-12-27 12:47 | PC.NURSE ---
BS - 81 AFTER PATIENT ATE HIS LUNCH. HE DENIES FEELING DIZZY, LIGHTHEADED, CLAMMY, OR ANY OTHER SYMPTOMS. PT GIVEN APPLE JUICE TO DRINK. WILL REASSESS.
[2020-12-27 12:50] LABS: Glucose Point of Care 81 mg/dL (70-110)
--- NOTE | 2020-12-27 13:59 | PC.NURSE ---
Addendum entered by Roxy López RN 12/27/20 20:16: DACIA Perez PT IS UPSET AT THIS TIME. DR MALONEY IS IN ROOM WITH PATIENT. SEE NOTE FOLLOWING. Original Note: DACIA Perez PT
--- NOTE | 2020-12-27 14:00 | PC.NURSE ---
AMBULATION OUTSIDE OF ICU The patient grew very upset around 1300 and asked nurse to call the physician because I want to leave this place right now. I am not going to be told that I cannot walk around. This is no different than you nurses walking in and out of this unit spreading Covid. I don't even go into the Covid rooms, so I don't know what the difference is. I want him here and I want to leave. Dr Dsouza was called and he is right outside of unit and spoke with patient. Dr. Dsouza told patient that he would be allowed to ambulate outside of the ICU locked unit unaccompanied - patient is to stay on the hospital main floor and not to go to other departments. He is to wear a mask at all times, and he is to make the loop around the main floor and come back to the department per Dr. Dsouza, he is not to go outside. Patient verbalized understanding to all of this. This nurse educated patient that the reason we did not want patient walking outside of the ICU locked unit is not only because of Covid-19, but more importantly the concern is about his safety. This RN explained to patient that he is on an insulin drip - that alone classifies him as a critical care patient and we must monitor him closely - which we are doing with hourly and less than hourly glucose checks and patient rounding. I explained that he is refusing telemetry and continuous monitoring, and so we cannot monitor what he is doing and especially cannot when he leaves this unit. I explained to patient that if he were to fall or his blood sugar bottom out and he needed help or got into a situation where his status began to quickly decline outside of the unit - that we would not know about it. I explained the hospital does not have the traffic it use to due to Covid precautions, and he is walking unaccompanied per his request - so if he were to get hurt - it may be a number of minutes before someone finds him and can help him. Patient stated that he was aware of the risks and that he would not leave the ICU unit if he felt bad or low or if his blood sugar was low. He stated that he still wants to be able to walk around and use the restroom in the ICU waiting room outside of the unit, unaccompanied, and he assumes responsibility of himself when he leaves the ICU unit. Bhupinder Stiles RN - ICU Nurse Dye Colorist Dyer is aware of 's activity order on this patient.
[2020-12-27 14:06] LABS: Glucose Point of Care 171 mg/dL (70-110)
[2020-12-27 15:28] LABS: Glucose Point of Care 82 mg/dL (70-110)
--- NOTE | 2020-12-27 16:11 | PC.NURSE ---
BS - 82 @ 1525 - GIVEN PEANUT BUTTER CRACKERS BS - 81 @ 1610 - PT STATES, I ATE A SMALL PIECE OF MY ROLA BAR BS - 91 @ 1611 - PT STATED, I DON'T BELIEVE IT DIDN'T GO UP HIGHER, I WANT IT RECHECKED RECHECK IS [address] MALONEY TO BE CALLED.
[2020-12-27 16:15] LABS: Glucose Point of Care 91 mg/dL (70-110)
[2020-12-27 16:15] LABS: Glucose Point of Care 81 mg/dL (70-110)
--- NOTE | 2020-12-27 16:30 | PC.NURSE ---
Dr. Dsouza called about patient's blood sugars 82, 81, 91 despite numerous snacks. Orders given to titrate insulin drip from 18units/hr to 10units/hr at this time. Continue to do hourly blood sugar checks and attempt to keep >120 if possible with diet interventions. If patient continues to remain low, call phyisician.
--- NOTE | 2020-12-27 16:48 | PM.PN ---
Subjective Subjective: Interval history: Patient was seen and examined this morning. Serum triglyceride is trending down. No other active complaints. Vitals and labs have been reviewed. Medications: Reviewed: Yes Vitals/I&O/Wt Last Vital Signs Temp 97.8 F 12/27/20 12:00 Pulse 80 12/27/20 12:00 Resp 20 H 12/27/20 12:00 BP 157/105 12/27/20 12:00 Pulse Ox 96 12/27/20 12:00 12/27/20 12/27/20 12/27/20 06:59 14:59 22:59 Intake Total 1582.0 / 5677.833 1500 / 1500 Balance 1582.0 / 5677.833 1500 / 1500 Weight last 48 hrs Weight 111.839 kg Weight 107.133 kg Physical Exam Const: COMMON NORMALS: patient oriented x3 HENMT: COMMON NORMALS: normocephalic and atraumatic HEAD & SCALP: normocephalic and atraumatic Resp: COMMON NORMALS: clear to auscultation bilaterally EFFORT & INSPECTION: Yes symmetric chest movement AUSCULTATION: clear to auscultation bilaterally Cardio: COMMON NORMALS: regular rate, regular rhythm, S1 normal heart sound present, S2 normal heart sound present, No gallops present (Cardio), No murmurs present (Cardio), No rub (Cardio) and Peripheral pulses 2+ throughout RATE: regular rate RHYTHM: regular rhythm HEART SOUNDS: S1 normal heart sound present and S2 normal heart sound present PERIPHERAL PULSES: Peripheral pulses 2+ throughout GI: COMMON NORMALS: Normal to inspection, nondistended, normoactive bowel sounds present, Soft to palpation, non-tender, No hepatosplenomegaly present and no masses AUSCULTATION: Yes normoactive bowel sounds PALPATION: Yes Soft to palpation and Yes No hepatosplenomegaly present RECTAL EXAM: Yes deferred Extremity: COMMON NORMALS: no clubbing, cyanosis or edema and no pedal edema Neuro: COMMON NORMALS: patient oriented x3 Data : 12/23/20 06:08 12/27/20 05:23 A&P Assessment and plan (1) Elevated triglycerides with high cholesterol: Grossly elevated triglyceride level of >[address]. Started on insulin infusion in the ER at 7 units/h, continue same for now. Monitor fingersticks every hour. Concomitant administration of D5 normal saline with 20 KCl. Check CMP and triglyceride level every 12 hours. No current signs or symptoms of acute pancreatitis, however high risk of development for the same. We will reach out to patient's green plumber tomorrow to establish goal for discontinuation of insulin drip (likely levels ~1000) and transition to oral fibrates and statins. Status: Acute (2) Diabetes mellitus: Currently on insulin infusion, FS monitoring ongoing every hour No signs of HHS at this time. Status: Acute (3) Diabetic neuropathy: Status: Acute (4) MDD (major depressive disorder): Status: Acute (5) Right carpal tunnel syndrome: Status: Acute (6) Cervical disc disease: Status: Acute (7) Bilateral hand numbness: Status: Acute Additional A&P Information Very severe hypertriglyceridemia secondary to insulin resistance with underlying worsening type 2 diabetes Triglycerides trending down today 3087 Insulin drip has been reduced to 10 units, continue D5NS with 20 meq k @ 75 cc/hr. Fenofibrate 145 mg po daily. Added to decrease the risk of acute pancreatitis No evidence of pancreatitis now Lipase improved Triglyceride check every 12 hours, blood sugar check every hour. We will continue Lantus on discharge.He will continue to follow endocrine as an outpatient. Signs of depression positive He does get emotionally labile however compensated for now Bilateral hand numbness carpal tunnel syndrome No strokelike findings History of carpal tunnel To see general surgery for decompressive surgery Consistent carb low-fat diet Full code DVT prophylaxis Lovenox Patient is eager to leave stating once his triglycerides less than 2000 he will leave the hospital Attestations Medical Necessity Statement*: he needs to be in hospital for management of very severe hypertriglyceridemia, need for insulin drip. Coding Level of Care Code Acute [employer] Functional Analyst for g Fwd Exam Detailed Diagnoses Elevated triglycerides with high cholesterol E78.2 Diabetes mellitus E11.9 Diabetic neuropathy E11.40 MDD (major depressive disorder) F32.9 Right carpal tunnel syndrome G56.01 Cervical disc disease M50.90 Bilateral hand numbness R20.0
--- NOTE | 2020-12-27 17:20 | PC.NURSE ---
LAB IN ROOM AND UNSUCCESSFUL X 2 WITH GETTING PT'S LABS. RN WAS ABLE TO GET IN PT'S RIGHT HAND. PT STATES THAT IV THAT IS SALINE LOCKED IN HIS RIGHT FOREARM IS HURTING HIM. ASKS THAT IT BE TAKEN OUT. PT'S LEFT ARM IV IS PATENT AND CURRENTLY RUNNING WITH INSULIN DRIP AT 18U/HR AND D5NS WITH 20KCL AT 125. IV REMOVED, OUT OF RIGHT ARM. TIP INTACT.
--- NOTE | 2020-12-27 17:21 | PC.NURSE ---
BS - 74. PT'S DINNER IS HERE AND DENIES FEELING SYMPTOMATIC. PT WOULD LIKE TO EAT HIS DINNER AND THEN HAVE BS REDRAWN. PT WANTS PHYSICAL THERAPY CALLED AT THIS TIME FOR THE WRIST SLEEVE . I EXPLAINED THAT PT HAS LIKELY GONE HOME AND IT MAY BE TOMORROW BEFORE THEY CAN ASSES HIM AND PROVIDE HIM THE CARPAL TUNNEL SPLINTS FOR THE PAIN IN HIS RIGHT HAND. ABLE TO REACH RAY IN PT. HE HAD THIS NURSE PUT IN AN OT CONSULT ORDER FOR CARPAL TUNNEL PAIN. RAY FITTED PATIENT FOR RIGHT HAND BRACE AND EDUCATED PATIENT ON USE.
[2020-12-27 18:08] LABS: Glucose Point of Care 74 mg/dL (70-110)
--- NOTE | 2020-12-27 18:10 | PC.NURSE ---
RN BROUGHT PT RANCH FAT FREE DRESSING FOR HIS SALAD. PT STATES THAT HE CANNOT HAVE HIS SALAD BECAUSE THERE IS CHEESE ON IT. KOTA LARES BROUGHT PATIENT A PLAIN SALAD AND PT HAD GIVEN HIS DRESSING AND OTHER SALAD AND SANDWICH TO HIS AT BEDSIDE.
[2020-12-27 18:32] LABS: Glucose Point of Care 153 mg/dL (70-110)
[2020-12-27 19:18] LABS: Triglycerides 3020 mg/dL (0-150)
[2020-12-27 19:19] LABS: Glucose Point of Care 175 mg/dL (70-110)
[2020-12-27 19:30] LABS: LDL Cholesterol Direct 47 mg/dL (0-100)
[2020-12-27] MEDS: amitriptyline 25 mg Tablet 50 MG PO (19:40)
[2020-12-27] MEDS: atorvastatin 40 mg Tablet PO (19:42)
[2020-12-27] MEDS: insulin regular-human 250 UNIT in sodium chloride 0.9% 250 ML 10 UNIT IV (19:45)
[2020-12-27 20:02] LABS: Glucose Point of Care 164 mg/dL (70-110)
[2020-12-27 21:08] LABS: Glucose Point of Care 151 mg/dL (70-110)
[2020-12-27 22:17] LABS: Glucose Point of Care 129 mg/dL (70-110)
--- NOTE | 2020-12-27 22:48 | PC.NURSE ---
Addendum entered by Abbey Gonzales RN 12/28/20 06:04: Patient ambulated the first floor moapa once at the beginning of the shift and would use the restroom in the ICU visitor waiting room. Original Note: Shift Note Frequent safety and comfort rounds continue. Orders and/or nursing care completed as indicated. Patient monitored for response to intervention and treatment(s). Education provided includes medications with side effects, hypoglycemia symptoms, insulin gtt with S/S to report, fall safety, including risks of ambulating outside the unit without supervision. Patient and/or artist representative verbalized understanding of all education provided and assumes all responsibilities of self when ambulating outside the ICU given this highly advised against by nurse and only allowed due to special order given by primary MD (see AM shift note by Roxy López RN). Patient also understands we are not able to monitor him when outside the unit, he verbalized understanding and states he is okay with these risks. Patient refuses to wear heart monitor continuous while in the ICU but allows staff supervisor graphite to monitor for vital signs. Will continue to monitor.
[2020-12-27 23:10] LABS: Glucose Point of Care 139 mg/dL (70-110)
[2020-12-27 23:56] LABS: Glucose Point of Care 134 mg/dL (70-110)
[2020-12-28] VITALS (9 sets, daily range): BP systolic 144–146; BP diastolic 84–85; PULSE 79–85; RESP 0–17; TEMP 36.8–37.2; O2SAT 95–96
[2020-12-28] MEDS: dextrose 5%-ns + KCl 20 20 MEQ/1,000 ML BAG 125 MEQ IV ×2 (00:56→08:37)
[2020-12-28 01:03] LABS: Glucose Point of Care 125 mg/dL (70-110)
[2020-12-28 02:12] LABS: Glucose Point of Care 127 mg/dL (70-110)
[2020-12-28 03:23] LABS: Glucose Point of Care 110 mg/dL (70-110)
[2020-12-28 04:08] LABS: Glucose Point of Care 124 mg/dL (70-110)
[2020-12-28 05:00] LABS: Glucose Point of Care 320 mg/dL (70-110)
[2020-12-28 05:00] LABS: Glucose Point of Care 122 mg/dL (70-110)
[2020-12-28 06:02] LABS: Glucose Point of Care 101 mg/dL (70-110)
[2020-12-28 06:08] LABS: Triglycerides 3465 mg/dL (0-150)
[2020-12-28 06:21] LABS: LDL Cholesterol Direct 52 mg/dL (0-100)
[2020-12-28 07:30] LABS: Glucose Point of Care 105 mg/dL (70-110)
[2020-12-28] MEDS: gabapentin 400 mg Capsule 1200 MG PO (07:30)
[2020-12-28] MEDS: HYDROcodone-acetaminophen 5-325 mg Tablet 1 TAB PO (07:32)
[2020-12-28] MEDS: pregabalin 150 mg Capsule PO (07:42)
--- NOTE | 2020-12-28 08:53 | PC.CHAP ---
Pastoral Care Encounter/Spiritual Assessment Type of Contact [] Declined assembler aircraft power plant visit [] Patient/Family/Request visit [] Outpatient visit [] Follow-up visit [] Physician referral [] Code/Alert [x] Routine visit [] Staff referral [] Actively dying [] Patient sleeping [] Family support [] [] Out of room [] Palliative care [] [] Receiving care in room [] Pre-surgical visit [] Trauma [] Long length of stay [x] ICU visit [] Other: Relational/Emotional Strength [] Patient feels connected with others/family/visitors/staff [] Distress [] Loneliness/isolation [] Abandonment Spirituality of Patient [] Person of Taty [] Attends Yazdanism of their Taty [] Believes in Prayer [] Reads Bible or Yarsanism materials [] There are Spiritual issues to be addressed Hydrographer Interventions [x] Prayer [] Active listening [] Non-anxious presence [] Spiritual/emotional support [] Crisis/trauma care [] Spiritual counseling [] Bereavement support [] Provided bereavement packet [] Provided Bible/devotional materials [] Provided toy/stuffed animal, coloring book to patient or family member [] Provided Communion [] Anointing/Odin [] Salvation [x] Completed spiritual assessment [] Other: Impact on Illness or Injury [] Angry [] Fearful [] Anxious [] Often cries [] Exhaustion [] Unable to work [] Unable to attend anabaptism [] Unable to walk/stand [] Unable to read [] Unable to drive [] Unable to eat/drink [] Unable to sleep [] Unable to be with family [] Patient intubated [] Other: Summary Time spent with patient
[2020-12-28] MEDS: pantoprazole DR 40 mg Tablet PO (09:06)
[2020-12-28] MEDS: buPROPion XL (24 HR) 150 mg Tablet PO (09:06)
[2020-12-28] MEDS: fenofibrate 145 mg Tablet PO (09:06)
[2020-12-28] MEDS: potassium chloride ER 20 mEq Tablet 40 MEQ PO (09:06)
[2020-12-28 09:40] LABS: Basophils # 0.1 10^3/uL (0.0-0.1); Basophils % 0.8 %; Eosinophils # 0.3 10^3/uL (0.0-0.8); Eosinophils % 3.6 %; Hematocrit 37.6 % (42.0-52.0); Hemoglobin 13.2 g/dL (11.7-16.6); Lymphocytes # 2.8 10^3/uL (0.8-4.8); Lymphocytes % 31.1 %; Mean Corpuscular HGB Conc 35.1 g/dL (30.0-36.0); Mean Corpuscular Hemoglobin 32.4 pg (28.0-34.0); Mean Corpuscular Volume 92.2 fl (80-94); Mean Platelet Volume 12.2 fL (7.4-10.4); Monocytes # 0.9 10^3/uL (0.2-0.9); Monocytes % 9.4 %; Neutrophils # 4.79 10^3/uL (1.8-7.7); Neutrophils % 53.2 %; Nucleated Red Blood Cells % 0 %; Platelet Count 208 10^3/cmm (130-400); Red Blood Count 4.08 10^6/uL (4.1-5.3); Red Cell Distribution Width 14.6 % (12.1-15.1)
--- NOTE | 2020-12-28 09:56 | PC.SOCIAL ---
IMM update IMM updated with patient. Verbalized an understanding. Initialled, dated, timed and placed in chart.
--- NOTE | 2020-12-28 10:14 | PC.NURSE ---
pt out walking this am. excited he is getting to go home. ins gtt off as well as iv fluids. blood sugar 160 same time gtt. off.
[2020-12-28 10:20] LABS: Glucose Point of Care 160 mg/dL (70-110)
[2020-12-28 10:55] LABS: Albumin Level 3.3 g/dL (3.5-5.2); Alkaline Phosphatase 58 IU/L (40-130); Aspartate Amino Transferase 15 U/L (0-40); Blood Urea Nitrogen 6 mg/dL (6-20); Calcium 8.4 mg/dL (8.5-10.5); Carbon Dioxide 22 mmol/L (22-29); Chloride 104 mmol/L (98-107); Globulin 2.2 g/dL (1.3-4.6); Glomerular Filtration Rate 184.2 mL/min (90-130); Glucose 100 mg/dL (65-115); Osmolality Calculated 284 mOsm/kg (285-295); Sodium 138 mmol/L (136-145); Total Bilirubin 0.2 mg/dL (0.15-1.2); Total Protein 5.5 g/dL (6.6-8.7)
[2020-12-28 11:06] LABS: Alanine Aminotransferase < 5 U/L (0-41)
--- NOTE | 2020-12-28 11:45 | PC.NURSE ---
discharged ambulatory, to go home with , he stated. blood sugar 155 on discharge after ins. gtt and d5 being off 1 hr. requested food for discharge.
[2020-12-28 11:55] LABS: Glucose Point of Care 155 mg/dL (70-110)
--- NOTE | 2020-12-28 12:27 | PC.OT ---
OT ORDERS RECEIVED FOR EVALUATION AND WRIST SPLINT APPLICATION. PATIENT DISCHARGED AT THIS TIME PRIOR TO EVAL AND SPLINT APPLICATION.
--- NOTE | 2020-12-29 10:50 | PC.SOCIAL ---
discharge follow up made. patient has follow up appointment made with Dr. Hamilton. No changes to current medications. No needs voiced. Patient reports he is feeling much better.
== END 2020-12-28 11:40 | disposition home or self-care (01) | DRG 642 ==
LOC: ER 19:44 → ER IP 21:46 → ICU 12-22 15:19
PROVIDERS: Internal Medicine; Admitting Provider Student in an Organized Health Care Education/Training Program; Emergency Provider Emergency Medicine; PCP Family Medicine; Visit Provider Internal Medicine
DX: E78.2 Mixed hyperlipidemia (principal); E87.1 Hypo-osmolality and hyponatremia; E11.69 Type 2 diabetes mellitus with other specified complication; E11.40 Type 2 diabetes mellitus with diabetic neuropathy, unspecified; E11.65 Type 2 diabetes mellitus with hyperglycemia; J44.9 Chronic obstructive pulmonary disease, unspecified; F32.9 Major depressive disorder, single episode, unspecified; G47.30 Sleep apnea, unspecified; F17.210 Nicotine dependence, cigarettes, uncomplicated; G56.03 Carpal tunnel syndrome, bilateral upper limbs; M50.90 Cervical disc disorder, unspecified, unspecified cervical region; Z79.4 Long term (current) use of insulin
CPT/HCPCS: 36415; 36416; 71045; 80048; 80053; 82962; 83690; 83721; 84478; 85025; 93005; 96365; 96366; 96372; 96375; 96376; 99285; J1650; J1815; J2270; J2405; J3480; J7030; J7050

== ENCOUNTER → 2021-01-17 09:52 | Outpatient (BNVA) | payer OTHER, SELFPAY | PROVIDERS: PCP Family Medicine; Visit Provider Social Worker | DX: F32.9 Major depressive disorder, single episode, unspecified (principal) | CPT/HCPCS: 90834 ==

== ENCOUNTER → 2021-01-19 10:21 | Outpatient (BNVA) | payer MEDICAID, SELFPAY | PROVIDERS: PCP Family Medicine; Visit Provider Internal Medicine | DX: E11.65 Type 2 diabetes mellitus with hyperglycemia (principal); E11.40 Type 2 diabetes mellitus with diabetic neuropathy, unspecified; E78.49 Other hyperlipidemia; F17.210 Nicotine dependence, cigarettes, uncomplicated; Z79.4 Long term (current) use of insulin | CPT/HCPCS: 99214 ==

== ENCOUNTER → 2021-01-23 08:33 | Outpatient (BNVA) | payer MEDICAID, SELFPAY | PROVIDERS: PCP Family Medicine; Referring Provider Family Medicine; Visit Provider Nurse Practitioner | DX: E11.65 Type 2 diabetes mellitus with hyperglycemia (principal); E11.42 Type 2 diabetes mellitus with diabetic polyneuropathy; Z79.4 Long term (current) use of insulin; G81.91 Hemiplegia, unspecified affecting right dominant side; F17.210 Nicotine dependence, cigarettes, uncomplicated | CPT/HCPCS: 99204 ==

== ENCOUNTER 2021-01-23 09:39 | Outpatient (CLI) | payer MEDICAID, SELFPAY ==
[2021-01-23 11:09] LABS: C Reactive Protein 3.1 mg/L (0.0-4.9); Thyroid Stimulating Hormone 0.67 uIU/mL (0.27-4.20); Vitamin B12 412 pg/mL (232-1245)
[2021-01-23 11:26] LABS: Folate Level 7.9 ng/mL (4.5-32.2)
[2021-01-24 12:02] LABS: Erythrocyte Sedimentation Rate 2 mm/hr (0-10)
[2021-01-27 10:27] LABS: Methylmalonic Acid 175 nmol/L (87-318)
== END 2021-01-23 09:40 | disposition home or self-care (01) ==
PROVIDERS: PCP Family Medicine; Visit Provider Nurse Practitioner
DX: G62.9 Polyneuropathy, unspecified (principal)
CPT/HCPCS: 82607; 82746; 83921; 84260; 84443; 85651; 86140; 99214

== ENCOUNTER → 2021-01-26 16:05 | Outpatient (BNVA) | payer MEDICAID, SELFPAY | PROVIDERS: PCP Family Medicine; Visit Provider Specialist | DX: R20.0 Anesthesia of skin (principal); R20.2 Paresthesia of skin; G81.91 Hemiplegia, unspecified affecting right dominant side; E11.65 Type 2 diabetes mellitus with hyperglycemia; Z79.4 Long term (current) use of insulin; F17.210 Nicotine dependence, cigarettes, uncomplicated | CPT/HCPCS: 95909 ==

== ENCOUNTER → 2021-02-08 09:34 | Outpatient (BNVA) | payer MEDICAID, SELFPAY | PROVIDERS: PCP Family Medicine; Visit Provider Social Worker | DX: F32.9 Major depressive disorder, single episode, unspecified (principal) | CPT/HCPCS: 90834 ==

== ENCOUNTER 2021-02-15 16:46 | Outpatient (CLI) | payer MEDICAID, SELFPAY ==
--- NOTE | 2021-02-15 16:45 | MR_ITS ---
WS: [id number] MRI HEAD WITHOUT CONTRAST TECHNIQUE: Sagittal T1, T2 axial, T2 axial FLAIR, axial and coronal T1 images, axial susceptibility w eighted imaging, axial diffusion weighted images, and coronal T2 images were obtained. CLINICAL INFORMATION: G62.9 - Polyneuropathy, unspecified COMPARISON: None. FINDINGS: No evidence of restricted diffusion to suggest acute ischemia. Ventricular system and basal cisterns are patent. Single focus of T2 hyperintensity in the right frontal periventricular white matter measu ring 6 mm. Normal corpus callosum. Normal posterior fossa. Normal vascular flow voids at the skull ba se. No extra-axial fluid collections. No evidence of mass or mass effect. Mild mucosal thickening par anasal sinuses. Partial opacification the mastoid air cells on the left. Mastoid air cells well aerated. Small retention cyst right maxillary sinus. Normal optic chiasm and p ituitary infundibulum. Normal cavernous sinuses. Mild symmetric atrophy and hippocampal formations. V isualized upper cervical canal is patent. MR/MR head wo con* [id number] IMPRESSION: 1. No evidence of restricted diffusion to suggest acute ischemia. 2. Single focus of T2 hyperintensity in the right periventricular white matter measuring 6.3 mm. This is nonspecific in a patient this age but can be seen wi th prior infectious/inflammatory, ischemic and demyelinating etiologies. This m ay be incidental. No other suspicious signal abnormalities. 3. No hemosiderin on susceptibly weighted images. 4. Mild parenchymal volume loss. 5. Partial opacification left mastoid air cells. Small retention cyst right ma xillary sinus.
== END 2021-02-15 16:47 | disposition home or self-care (01) ==
LOC: RADSHAW 16:47
PROVIDERS: PCP Family Medicine; Visit Provider Nurse Practitioner
DX: G62.9 Polyneuropathy, unspecified (principal); G81.91 Hemiplegia, unspecified affecting right dominant side
CPT/HCPCS: 70551

== ENCOUNTER → 2021-02-23 10:59 | Outpatient (BNVA) | payer OTHER, MEDICAID, SELFPAY | PROVIDERS: PCP Family Medicine; Visit Provider Social Worker | DX: F32.9 Major depressive disorder, single episode, unspecified (principal) | CPT/HCPCS: 90834 ==

== ENCOUNTER → 2021-03-07 09:08 | Outpatient (BNVA) | payer MEDICAID, SELFPAY | PROVIDERS: PCP Family Medicine; Visit Provider Internal Medicine | DX: E78.49 Other hyperlipidemia (principal); E11.65 Type 2 diabetes mellitus with hyperglycemia; G93.9 Disorder of brain, unspecified; Z79.4 Long term (current) use of insulin; Z79.84 Long term (current) use of oral hypoglycemic drugs; F17.200 Nicotine dependence, unspecified, uncomplicated | CPT/HCPCS: 99214 ==

== ENCOUNTER → 2021-03-21 10:40 | Outpatient (BNVA) | payer OTHER, MEDICAID, SELFPAY | PROVIDERS: PCP Family Medicine; Visit Provider Psychiatry & Neurology Psychiatry | DX: F32.9 Major depressive disorder, single episode, unspecified (principal) | CPT/HCPCS: 99214 ==

== ENCOUNTER → 2021-03-22 09:54 | Outpatient (BNVA) | payer OTHER, MEDICAID, SELFPAY | PROVIDERS: PCP Family Medicine; Visit Provider Social Worker | DX: F32.9 Major depressive disorder, single episode, unspecified (principal) | CPT/HCPCS: 90834 ==

== ENCOUNTER 2021-03-28 08:25 | Outpatient (CLI) | payer MEDICAID, SELFPAY ==
--- NOTE | 2021-03-28 08:31 | MR_ITS ---
WS: [id number] MRI BRAIN WITH AND WITHOUT CONTRAST HISTORY: R93.0 - Abnormal findings on diagnostic imaging of skull ... COMPARISON: 02/15/2021 TECHNIQUE: Multiplanar imaging performed through the brain with MultiHance 20 ml's IV. No acute infarcts are seen. Yost-white matter differentiation is well preserved. Again noted is a sin gle 6 mm area of increased T2 and FLAIR signal in the RIGHT frontal periventricular white matter. No restricted diffusion or hemorrhage associated with this single focus. There is no enhancement. No add itional signal abnormalities are identified. No susceptibility artifacts or prior lacunar infarcts. Ventricles and extra-axial spaces are normal. Clivus and pituitary gland are normal. Visualized posterior fossa and brainstem are also normal. Postcontrast images are negative for masses or vascular malformations. Dural venous sinuses are normal. Paranasal sinuses: Mucous retention cyst in the floor the RIGHT maxillary sinus. No air-fluid levels. Mastoid air cells: Mild opacification of the LEFT mastoid air cells. Calvarium and scalp: Normal. MR/MR head wo/w con [id number] IMPRESSION: 1. No enhancement of the single RIGHT periventricular white matter focus. This is very nonspecific and may be due to a prior ischemic event. 2. No areas of enhancement. 3. No hemorrhage or acute infarct.
[2021-03-28] MEDS: gadobenate dimeglumine 20 mL vial IV (09:17)
== END 2021-03-28 08:26 | disposition home or self-care (01) ==
PROVIDERS: PCP Family Medicine; Visit Provider Nurse Practitioner
DX: G81.91 Hemiplegia, unspecified affecting right dominant side (principal); R93.0 Abnormal findings on diagnostic imaging of skull and head, not elsewhere classified
CPT/HCPCS: 90834; 70553

== ENCOUNTER 2021-03-28 10:03 | Outpatient (CLI) | payer MEDICAID, SELFPAY ==
[2021-03-28 11:07] LABS: Chol HDL Ratio 4.11 mg/dL (1.0-5.00); Cholesterol 111 mg/dL (0-200); HDL Cholesterol 27 mg/dL (60-100); LDL Cholesterol Calculated 26 mg/dL (50-129); LDL HDL Ratio 0.96 RATIO (0.00-3.22); Triglycerides 292 mg/dL (0-150)
[2021-03-28 12:03] LABS: Estmated Average Glucose 203; Hemoglobin A1C 8.7 % (4.0-6.0)
== END 2021-03-28 10:04 | disposition home or self-care (01) ==
PROVIDERS: PCP Family Medicine; Visit Provider Internal Medicine
DX: E11.65 Type 2 diabetes mellitus with hyperglycemia (principal); E78.49 Other hyperlipidemia
CPT/HCPCS: 36415; 80061; 83036

== ENCOUNTER → 2021-04-12 08:43 | Outpatient (BNVA) | payer MEDICAID, SELFPAY | PROVIDERS: PCP Family Medicine; Referring Provider Nurse Practitioner; Visit Provider Specialist | DX: G37.9 Demyelinating disease of central nervous system, unspecified (principal); G81.91 Hemiplegia, unspecified affecting right dominant side; E11.40 Type 2 diabetes mellitus with diabetic neuropathy, unspecified; Z79.4 Long term (current) use of insulin; F41.9 Anxiety disorder, unspecified; R21 Rash and other nonspecific skin eruption; F17.210 Nicotine dependence, cigarettes, uncomplicated | CPT/HCPCS: 95861; 99214 ==

== ENCOUNTER → 2021-04-26 08:04 | Outpatient (BNVA) | payer OTHER, MEDICAID, SELFPAY | PROVIDERS: PCP Family Medicine; Visit Provider Social Worker | DX: F32.9 Major depressive disorder, single episode, unspecified (principal) | CPT/HCPCS: 90834 ==

== ENCOUNTER → 2021-05-09 08:16 | Outpatient (BNVA) | payer OTHER, SELFPAY | PROVIDERS: PCP Family Medicine; Visit Provider Social Worker | DX: F32.9 Major depressive disorder, single episode, unspecified (principal) | CPT/HCPCS: 90834 ==

== ENCOUNTER → 2021-05-30 10:55 | Outpatient (BNVA) | payer OTHER, MEDICAID, SELFPAY | PROVIDERS: PCP Family Medicine; Visit Provider Psychiatry & Neurology Psychiatry | DX: F32.9 Major depressive disorder, single episode, unspecified (principal) | CPT/HCPCS: 99214 ==

== ENCOUNTER → 2021-05-31 07:44 | Outpatient (BNVA) | payer OTHER, MEDICAID, SELFPAY | PROVIDERS: PCP Family Medicine; Visit Provider Social Worker | DX: F32.9 Major depressive disorder, single episode, unspecified (principal) | CPT/HCPCS: 90834 ==

== ENCOUNTER → 2021-06-26 07:52 | Outpatient (BNVA) | payer OTHER, MEDICAID, SELFPAY | PROVIDERS: PCP Family Medicine; Visit Provider Social Worker | DX: F32.9 Major depressive disorder, single episode, unspecified (principal) | CPT/HCPCS: 90832 ==

== ENCOUNTER → 2021-07-10 08:41 | Outpatient (BNVA) | payer OTHER, MEDICAID, SELFPAY | PROVIDERS: PCP Family Medicine; Visit Provider Social Worker | DX: F32.9 Major depressive disorder, single episode, unspecified (principal) | CPT/HCPCS: 90834 ==

== ENCOUNTER → 2021-07-14 09:02 | Outpatient (BNVA) | payer OTHER, MEDICAID, SELFPAY | PROVIDERS: PCP Family Medicine; Visit Provider Internal Medicine | DX: E11.65 Type 2 diabetes mellitus with hyperglycemia (principal); E78.49 Other hyperlipidemia; F17.210 Nicotine dependence, cigarettes, uncomplicated; Z79.84 Long term (current) use of oral hypoglycemic drugs; Z79.4 Long term (current) use of insulin | CPT/HCPCS: 99214 ==

== ENCOUNTER → 2021-08-01 08:07 | Outpatient (BNVA) | payer OTHER, MEDICAID, SELFPAY | PROVIDERS: PCP Family Medicine; Visit Provider Social Worker | DX: F32.9 Major depressive disorder, single episode, unspecified (principal) | CPT/HCPCS: 90834 ==

== ENCOUNTER → 2021-08-14 10:22 | Outpatient (BNVA) | payer MEDICAID, SELFPAY | PROVIDERS: PCP Family Medicine; Visit Provider Nurse Practitioner | DX: E11.40 Type 2 diabetes mellitus with diabetic neuropathy, unspecified (principal); Z79.4 Long term (current) use of insulin; Z79.84 Long term (current) use of oral hypoglycemic drugs; G47.00 Insomnia, unspecified; F17.210 Nicotine dependence, cigarettes, uncomplicated; F33.9 Major depressive disorder, recurrent, unspecified; F43.12 Post-traumatic stress disorder, chronic | CPT/HCPCS: 90791; 96116; 99213; 99214 ==

== ENCOUNTER → 2021-09-05 07:31 | Outpatient (BNVA) | payer OTHER, SELFPAY | PROVIDERS: PCP Family Medicine; Visit Provider Social Worker | DX: F32.9 Major depressive disorder, single episode, unspecified (principal) | CPT/HCPCS: 90832 ==

== ENCOUNTER 2021-09-27 | Outpatient (CLI) | payer OTHER, SELFPAY | END 2021-09-27 23:59 | disposition home or self-care (01) | LOC: RAD 11-27 16:12 | PROVIDERS: PCP Family Medicine; Visit Provider Nurse Practitioner | DX: F32.9 Major depressive disorder, single episode, unspecified (principal) | CPT/HCPCS: 90834 ==

== ENCOUNTER → 2021-10-19 07:24 | Outpatient (BNVA) | payer MEDICAID, SELFPAY | PROVIDERS: PCP Family Medicine; Visit Provider Social Worker | DX: F32.9 Major depressive disorder, single episode, unspecified (principal) | CPT/HCPCS: 90834 ==

== ENCOUNTER → 2021-11-16 14:45 | Outpatient (BNVA) | payer MEDICAID, SELFPAY | PROVIDERS: PCP Family Medicine; Visit Provider Internal Medicine | DX: E11.65 Type 2 diabetes mellitus with hyperglycemia (principal); E78.49 Other hyperlipidemia; F17.210 Nicotine dependence, cigarettes, uncomplicated; Z79.84 Long term (current) use of oral hypoglycemic drugs; Z79.4 Long term (current) use of insulin | CPT/HCPCS: 99214 ==

== ENCOUNTER → 2022-10-17 08:48 | Outpatient (BNVA) | payer MEDICAID, SELFPAY | PROVIDERS: PCP Family Medicine; Visit Provider Internal Medicine | DX: E11.65 Type 2 diabetes mellitus with hyperglycemia (principal); E78.49 Other hyperlipidemia | CPT/HCPCS: 36415; 80053; 80061; 82044; 83036; 83721 ==

== ENCOUNTER → 2023-03-07 09:20 | Outpatient (BNVA) | payer MEDICAID, SELFPAY | PROVIDERS: PCP Family Medicine; Visit Provider Internal Medicine | DX: E11.65 Type 2 diabetes mellitus with hyperglycemia (principal); E78.49 Other hyperlipidemia | CPT/HCPCS: 36415; 80053; 80061; 82044; 83036; 83721 ==

== ENCOUNTER 2023-06-09 12:32 | Emergency (ER) | payer SELFPAY ==
[2023-06-09 12:36] VITALS: BP 148/90; PULSE 72; RESP 14; TEMP 36.6; O2SAT 96; BMI 32.3
--- NOTE | 2023-06-09 13:02 | ED_ITS ---
HPI - Extremity Problem General: Chief complaint: Extremity Injury, Lower Stated complaint: numbness in right leg Time Seen by Provider: 06/09/23 13:01 History of Present Illness: 43-year-old male patient comes in today for complaints of numbness right lower extremity and difficulty walking starting last night. Patient appears nontoxic. Patient believes that he might have a blood clot in his leg. Patient has a history of diabetes mellitus, chronic back pain, and neuropathy. Review of Systems General: Reports: 10 or more systems reviewed and unremarkable except in HPI and below Musc: Reports: other (Numbness right lower leg.) PFS ED PFSH: Medical History Bilateral hand numbness Cervical disc disease COPD (chronic obstructive pulmonary disease) Diabetes mellitus Diabetic neuropathy Elevated triglycerides with high cholesterol MDD (major depressive disorder) Right carpal tunnel syndrome Right hemiparesis Sleep apnea Surgical History History of appendectomy History of tonsillectomy Family History Mother Psychiatric illness Diabetes Cancer Father Psychiatric illness Cancer Social History Smoking and tobacco/nicotine status: current every day tobacco/nicotine user cigarettes [ Other cigarette details: 1-1.5 PPD] Second hand smoke exposure: Yes Alcohol intake: current Alcohol intake frequency: holidays/special occasions only Substance/Drug Use: never Lives independently: Yes Physical Exam Const: COMMON NORMALS: alert HENMT: COMMON NORMALS: normocephalic HEAD & SCALP: normocephalic Neck/C-Spine: COMMON NORMALS: full ROM Chest: COMMONS NORMALS: normal inspection of the chest Resp: COMMON NORMALS: normal respiratory effort Cardio: COMMON NORMALS: regular rate and regular rhythm RATE: regular rate RHYTHM: regular rhythm Back/Pelvis: LUMBAR SPINE/LOWER BACK: Yes lumbar spinal tenderness Lumbar spinal tenderness location: L4, No paraspinal muscle tenderness and Yes straight leg raise negative bilaterally Extremity: COMMON NORMALS: normal to inspection Neuro: SENSORIUM/ORIENTATION: Yes alert Skin: COMMON NORMALS: turgor normal GENERAL SKIN EXAM: turgor normal Course Vital Signs: Vital signs: Vital Signs Temperature 97.8 F 06/09/23 12:36 Pulse Rate 72 06/09/23 12:36 Respiratory Rate 14 06/09/23 12:36 Blood Pressure 148/90 06/09/23 12:36 Pulse Oximetry 96 06/09/23 12:36 Oxygen Delivery Me thod Room Air 06/09/23 12:36 MDM - Extremity (Nontraumatic) Medical Decision Making 43-year-old male patient comes in today for complaints of numbness to the right lower leg. Patient appears nontoxic. Patient appears in no acute distress. Respirations are even lungs are clear to auscultation. No redness or swelling is noted to the right lower extremity. Patient has some tenderness along the lower lumbar vertebra. No muscle spasms. Negative leg lift test. Differential diagnosis includes but not limited to lumbar radiculitis, intervertebral disc disease, facet arthritis, diabetic neuropathy. Patient is concerned about a DVT so ultrasound was performed to rule out DVT. Ultrasound lower extremity noted no DVT. I reviewed the exam with patient recommended follow-up with primary care for reestablishment of care with medications for blood pressure and diabetes. I also recommended follow-up with neurology for further evaluation and treatment. Patient refused both follow-up appointments. Patient was recommended to follow-up on his own then. Lab Data Laboratory Results POC Glucose 232 mg/dL (70-110) H 06/09/23 13:12 All radiology interpretation(s) finalized by discharge Discharge Plan Discharge Patient Disposition: Home Clinical Impression: Neuropathy Condition: Stable Prescriptions: No Action hydrocodone-acetaminophen 5-325 mg tablet 1 tab PO Q4H PRN (Reason: Pain) Jardiance 25 mg tablet 25 mg PO DAILY Qty: 90 0RF fenofibrate nanocrystallized 145 mg tablet 145 mg PO DAILY Qty: 90 0RF omega-3 acid ethyl esters [Lovaza] 1 gram capsule 2 cap PO DAILY Qty: 180 0RF metformin 500 mg tablet 1,000 mg PO BID 60 Days Qty: 240 0RF testosterone cypionate 200 mg/mL oil 200 mg IM Q14D atorvastatin 80 mg tablet 80 mg PO BEDTIME Discharge Orders: Discharge ED (Routine); Ordered 06/09/23 Ordered By: Zackary Hamm Referrals: Annmarie Shi MD [Primary Care Provider] - Discharge Diet: Usual diet Discharge Activity: Increase activity as tolerated Patient Instructions: Peripheral Neuropathy (ED) Activity Restrictions/Additional Instructions: Follow-up with primary care for further evaluation and treatment. Return to ED for new concerns. Coding Level of Care Code ED Manager [employer] for Lis Graham
--- NOTE | 2023-06-09 13:07 | USR_ITS ---
PROCEDURE INFORMATION: Exam: US Duplex Right Lower Extremity Veins, Limited Exam date and time: 06/09/2023 2:17 PM Age: 43 years old Clinical indication: Pain; Leg, lower; Right; Additional info: R/O dvt, calf pain TECHNIQUE: Imaging protocol: Real-time duplex ultrasound of the right extremity with 2-D cho scale, color Doppler flow and spectral waveform analysis including responses to compression and other maneuvers (when performed) with image documentation. Limited exam was focused on the right lower extremity veins. COMPARISON: US scrotum [id number] 07/08/2017 4:47 PM FINDINGS: Right deep veins: Unremarkable. The common femoral, femoral, proximal profunda femoral and popliteal veins are patent without thrombus. Normal Doppler waveforms. Normal compressibility and/or augmentation response. Superficial veins: Unremarkable. Saphenofemoral junction is patent without thrombus. No thrombus identified in the visualized portions of the right peroneal, and posterior tibial veins. Please note that this technique does not exclude thrombus isolated to the calf veins. Soft tissues: No Garcia's cyst identified. US/[place] [id number] IMPRESSION: No evidence of deep vein thrombosis.
[2023-06-09 13:15] LABS: Glucose Point of Care 232 mg/dL (70-110)
--- NOTE | 2023-06-09 14:25 | PC.PHAR ---
pt states he takes care of his own medications-pt states his lantus was dced 6 months ago ext shows last filled 09/03/22-pt states he is only taking the medications entered
[2023-06-09 15:16] VITALS: BP 148/90; PULSE 72; RESP 14; TEMP 36.6; O2SAT 96
== END 2023-06-09 15:17 | disposition home or self-care (01) ==
PROVIDERS: Emergency Provider Nurse Practitioner Family; PCP Family Medicine
DX: E11.40 Type 2 diabetes mellitus with diabetic neuropathy, unspecified (principal); J44.9 Chronic obstructive pulmonary disease, unspecified; F17.210 Nicotine dependence, cigarettes, uncomplicated; Z79.84 Long term (current) use of oral hypoglycemic drugs
CPT/HCPCS: 36416; 82962; 93971; 99284